=== PATIENT | female | born 1980 | race Caucasian/White ===

== ENCOUNTER → 2018-08-14 16:37 | Outpatient (CLI) | payer OTHER, SELFPAY ==
[2018-08-14 10:57] VITALS: BMI 34.7
[2018-08-17 17:15] LABS: HPV APTIMA, High Risk Negative (Negative)
== END ==
PROVIDERS: Family Provider Family Medicine; PCP Family Medicine; Referring Provider Obstetrics & Gynecology; Visit Provider Obstetrics & Gynecology
DX: Z12.4 Encounter for screening for malignant neoplasm of cervix (principal)
CPT/HCPCS: 87624; 88175; G0145

== ENCOUNTER → 2018-08-19 09:12 | Outpatient (CLI) | payer OTHER, SELFPAY ==
[2018-08-14 10:57] VITALS: BMI 34.7
--- NOTE | 2018-08-19 09:15 | BI_ITS ---
MAMMOGRAPHY - BILATERAL DIAGNOSTIC REASON FOR EXAM: Female, 38 years old. Palpable abnormality in the left breast. PERTINENT HISTORY: Non-contributory. TECHNIQUE: Digital bilateral breast ramses (3D mammographic acquisition) in the CC and MLO projections. 2-D mediolateral oblique (MLO) and craniocaudad (CC) views of both breasts were obtained. CAD: Full Field Digital Mammography with Computer Added Detection was performed. COMPARISON: None. Baseline examination. FINDINGS: Breast Composition: The breasts are extremely dense, which lowers the sensitivity of mammography. There are no dominant masses or suspicious calcifications. No other significant abnormalities are identified. BI/DIAG MAMM W/CAD, BILAT IMPRESSION: Negative diagnostic mammogram. With the patient's history of a pathologic abnormality in the left breast, correlation with ultrasound is recommended. ASSESSMENT CATEGORY: BIRADS Category 0: Incomplete. Need additional imaging evaluation. A letter regarding these results will be sent to the patient by the facility within 30 days. Approximately 10% of breast cancers are not detected by mammography. A normal mammogram should not delay biopsy of a clinically suspicious abnormality. Electronically Signed: Bubba Rios, at 14:36 EDT , Service support ,
--- NOTE | 2018-08-19 09:15 | US_ITS ---
STUDY: ULTRASOUND BREAST - LEFT REASON FOR EXAM: Female, 38 years old. Palpable lump left breast. TECHNIQUE: Axial and longitudinal images of the LEFT breast were performed with a high resolution ultrasound transducer. COMPARISON: Comparison is made with prior mammogram done earlier today. FINDINGS: LEFT Breast: The upper outer quadrant of the left breast was examined by ultrasound. There is dense fibroglandular tissue. No solid or cystic mass lesion is seen. US/Breast Limited Unilateral IMPRESSION: Unremarkable ultrasound of the upper outer quadrant of the left breast. ASSESSMENT CATEGORY: BIRADS Category 1: Negative. A letter regarding these results will be sent to the patient by the facility within 30 days. Electronically Signed: Bubba Rios, at 12:22 EDT , Service support ,
== END ==
PROVIDERS: Family Provider Family Medicine; PCP Family Medicine; Referring Provider Obstetrics & Gynecology; Visit Provider Obstetrics & Gynecology
DX: N63.20 Unspecified lump in the left breast, unspecified quadrant (principal)
CPT/HCPCS: 76642; 77066

== ENCOUNTER → 2019-09-12 12:38 | Outpatient (CLI) | payer OTHER, SELFPAY ==
[2018-09-13 08:09] VITALS: BMI 34.7
--- NOTE | 2019-09-12 12:39 | BI_ITS ---
MAMMOGRAPHY - BILATERAL SCREENING REASON FOR EXAM: Female, 39 years old. Routine annual screening examination. PERTINENT HISTORY: Non-contributory. TECHNIQUE: Digital bilateral breast sarahi (3D mammographic acquisition) in the CC and MLO projections. 2-D mediolateral oblique (MLO) and craniocaudad (CC) views of both breasts were obtained. CAD: Full Field Digital Mammography with Computer Added Detection was performed. COMPARISON: Comparison is made with prior study dated August 19, 2018. FINDINGS: Breast Composition: The breasts are extremely dense, which lowers the sensitivity of mammography. There are no dominant masses or suspicious calcifications. No other significant abnormalities are identified. There has been no significant change since the prior study. BI/SCREEN MAMM (CAD) W/SARAHI BILAT IMPRESSION: Stable bilateral screening mammogram. Yearly follow-up mammogram recommended. (A) ASSESSMENT CATEGORY: BIRADS Category 1: Negative. A letter regarding these results will be sent to the patient by the facility within 30 days. Approximately 10% of breast cancers are not detected by mammography. A normal mammogram should not delay biopsy of a clinically suspicious abnormality. [id number] Electronically Signed: Bubba Rios, at 13:20 EDT , Service support ,
== END ==
PROVIDERS: PCP Family Medicine; Referring Provider Obstetrics & Gynecology; Visit Provider Obstetrics & Gynecology
DX: Z12.31 Encounter for screening mammogram for malignant neoplasm of breast (principal)
CPT/HCPCS: 77063; 77067

== ENCOUNTER → 2019-10-17 10:47 | Outpatient (CLI) | payer OTHER, SELFPAY ==
[2019-10-04 08:16] VITALS: BMI 38.3
--- NOTE | 2019-10-17 10:49 | US_ITS ---
STUDY: ULTRASOUND BREAST - LEFT REASON FOR EXAM: Female, 39 years old. Palpable lump in the left breast. TECHNIQUE: Axial and longitudinal images of the LEFT breast were performed with a high resolution ultrasound transducer. # OF IMAGES: 67 COMPARISON: None. FINDINGS: LEFT Breast: There is no abnormality in the soft tissues of the breast to correlate with the mammographic abnormality. There is no abnormal soft tissue tissue mass. There is no cyst formation. US/Breast Complete Unilateral IMPRESSION: There is no abnormality in the soft tissues of the breast to correlate with the mammographic abnormality. There is no abnormal soft tissue tissue mass. There is no cyst formation. ASSESSMENT CATEGORY: BIRADS Category 2: Benign. A letter regarding these results will be sent to the patient by the facility within 30 days. Electronically Signed: Darcie Yañez, at 13:21 EDT Tel , Service support ,
== END ==
PROVIDERS: PCP Family Medicine; Referring Provider Obstetrics & Gynecology; Visit Provider Obstetrics & Gynecology
DX: N63.20 Unspecified lump in the left breast, unspecified quadrant (principal)
CPT/HCPCS: 76641

== ENCOUNTER → 2020-10-22 12:58 | Outpatient (CLI) | payer OTHER, SELFPAY ==
[2020-10-07 15:06] VITALS: BMI 38.3
--- NOTE | 2020-10-22 12:59 | BI_ITS ---
MAMMOGRAPHY - BILATERAL SCREENING REASON FOR EXAM: Female, 40 years old. Routine annual screening examination. PERTINENT HISTORY: Non-contributory. TECHNIQUE: Digital bilateral breast sarahi (3D mammographic acquisition) in the CC and MLO projections. 2-D mediolateral oblique (MLO) and craniocaudad (CC) views of both breasts were obtained. CAD: Full Field Digital Mammography with Computer Added Detection was performed. COMPARISON: Comparison is made with prior examination of 09/12/2019 and 08/19/2018. FINDINGS: Breast Composition: The breasts are extremely dense, which lowers the sensitivity of mammography. There are no dominant masses or suspicious calcifications. No other significant abnormalities are identified. There has been no significant change since the prior study. BI/SCRN MAMM (CAD)W/SARAHI BILAT IMPRESSION: Stable bilateral screening mammogram. Yearly follow-up mammogram recommended. (A) ASSESSMENT CATEGORY: BIRADS Category 1: Negative. A letter regarding these results will be sent to the patient by the facility within 30 days. Approximately 10% of breast cancers are not detected by mammography. A normal mammogram should not delay biopsy of a clinically suspicious abnormality. [id number] Electronically Signed: Bubba Rios MD at 14:10 EDT , Service support ,
== END ==
PROVIDERS: PCP Family Medicine; Referring Provider Obstetrics & Gynecology; Visit Provider Obstetrics & Gynecology
DX: Z12.31 Encounter for screening mammogram for malignant neoplasm of breast (principal)
CPT/HCPCS: 77063; 77067

== ENCOUNTER → 2022-02-07 | Outpatient (CLI) | payer OTHER, SELFPAY ==
--- NOTE | 2022-02-07 13:41 | BI_ITS ---
MAMMOGRAPHY - BILATERAL SCREENING REASON FOR EXAM: Female, 41 years old. Routine annual screening examination. PERTINENT HISTORY: Non-contributory. TECHNIQUE: Digital bilateral breast sarahi (3D mammographic acquisition) in the CC and MLO projections. 2-D mediolateral oblique (MLO) and craniocaudad (CC) views of both breasts were obtained. CAD: Full Field Digital Mammography with Computer Added Detection was performed. COMPARISON: Comparison is made with prior study dated 10/22/2020 and 09/12/2019. FINDINGS: Breast Composition: The breasts are extremely dense, which lowers the sensitivity of mammography. There are no dominant masses or suspicious calcifications. No other significant abnormalities are identified. There has been no significant change since the prior study. BI/SCRN MAMM (CAD)W/SARAHI BILAT IMPRESSION: Stable bilateral screening mammogram. Yearly follow-up mammogram recommended. (A) ASSESSMENT CATEGORY: BIRADS Category 1: Negative. A letter regarding these results will be sent to the patient by the facility within 30 days. Approximately 10% of breast cancers are not detected by mammography. A normal mammogram should not delay biopsy of a clinically suspicious abnormality. [id number] Electronically Signed: Bubba Rios MD at 14:27 EDT ,
== END | disposition home or self-care (01) ==
LOC: OPBI 13:13
PROVIDERS: PCP Family Medicine; Referring Provider Obstetrics & Gynecology; Visit Provider Obstetrics & Gynecology
DX: Z12.31 Encounter for screening mammogram for malignant neoplasm of breast (principal)
CPT/HCPCS: 77063; 77067

== ENCOUNTER → 2022-03-30 | Outpatient (CLI) | payer OTHER, SELFPAY ==
[2022-03-30 13:25] LABS: Amphetamine Urine VISTA NEGATIVE (<1000 ng/mL); Barbiturate Urine VISTA NEGATIVE (< 200 ng/mL); Benzodiazepine Urine VISTA NEGATIVE (< 200 ng/mL); Cocaine Urine VISTA NEGATIVE (< 300 ng/mL); Ecstacy Urine VISTA NEGATIVE (< 500 ng/mL); Methadone Urine VISTA NEGATIVE (< 300 ng/mL); PCP Urine VISTA NEGATIVE (< 25 ng/mL); THC Urine VISTA NEGATIVE (< 50 ng/mL); Vista UDS pH Range 7
[2022-04-01 12:08] LABS: Chlamydia By Nucleic Acid AMP Negative (Negative)
[2022-04-01 15:12] LABS: Gonococcus By Nucleic Acid AMP Negative (Negative)
== END | disposition home or self-care (01) ==
LOC: LABSPEC 11:58
PROVIDERS: PCP Family Medicine; Visit Provider Obstetrics & Gynecology
DX: O09.519 Supervision of elderly primigravida, unspecified trimester (principal); Z3A.00 Weeks of gestation of pregnancy not specified
CPT/HCPCS: 80307; 87086; 87088; 87491; 87591

== ENCOUNTER → 2022-04-04 | Outpatient (CLI) | payer OTHER, SELFPAY ==
[2022-04-04 16:01] LABS: NATERA MAILED SPECIMEN
[2022-04-04 16:09] LABS: Absolute Lymphocyte Count 1.36 X10^3/uL (0.83-4.51); Basophil# 0.01 X10^3/uL; Basophil% 0.2 % (0-1); Eosinophil# 0.06 X10^3/uL; Hematocrit 39.6 % (37-47); Hemoglobin 13.4 g/dL (12.0-15.0); Lymphocyte # 1.36 X10^3/ul (0.83-4.51); Lymphocyte % 23.1 % (19-41); Mean Corp Hgb Conc 33.8 g/dL (32-36); Mean Corpuscular Hgb 31.8 pg (27.0-32.0); Mean Corpuscular Volume 94.1 fL (81-99); Mean Platelet Vol. 14.1 fl (6.2-12.0); Monocyte# 0.41 X10^3/uL; NRBC Flagged by Analyzer 0 % (0-5); Neutrophil # 4.03 X10^3/uL (2.7-7.7); Neutrophil % 68.5 % (47-70); Platelet Count 123 K/mm3 (150-450); RBC Distribution Width CV 12.9 % (11.6-14.6); RBC Distribution Width SD 44.6 fl (35.1-43.9); Red Blood Count 4.21 M/mm3 (4.2-5.4); White Blood Count 5.9 K/mm3 (4.4-11.0)
[2022-04-04 17:16] LABS: Glucose Challenge Gest 1H 50g 94 mg/dL (70-140)
[2022-04-05 12:14] LABS: HIV - WCH Non-Reactive (Nonreactive); Hepatitis B Surface Antigen Non-Reactive (Nonreactive); Hepatitis C Antibody Non-Reactive (Nonreactive); Rubella IgG Reactive (Nonreactive); Syphilis Antibodies Non-reactive
== END | disposition home or self-care (01) ==
LOC: LAB 14:37
PROVIDERS: PCP Family Medicine; Referring Provider Obstetrics & Gynecology; Visit Provider Obstetrics & Gynecology
DX: O09.519 Supervision of elderly primigravida, unspecified trimester (principal); O99.210 Obesity complicating pregnancy, unspecified trimester; E66.9 Obesity, unspecified; Z3A.00 Weeks of gestation of pregnancy not specified
CPT/HCPCS: 36415; 82950; 85025; 86703; 86762; 86780; 86803; 86850; 86900; 86901; 87340

== ENCOUNTER → 2022-05-05 | Outpatient (CLI) | payer OTHER, SELFPAY ==
[2022-05-05 10:04] LABS: Absolute Lymphocyte Count 1.45 X10^3/uL (0.83-4.51); Absolute Neutrophil Count 6.1 X10^3/uL (2.0-7.7); Basophil# 0.01 X10^3/uL; Basophil% 0.1 % (0-1); Eosinophil# 0.06 X10^3/uL; Eosinophils% 0.7 % (0-5); Hematocrit 40.2 % (37-47); Hemoglobin 13.1 g/dL (12.0-15.0); Lymphocyte # 1.45 X10^3/ul (0.83-4.51); Lymphocyte % 17.8 % (19-41); Mean Corp Hgb Conc 32.6 g/dL (32-36); Mean Corpuscular Hgb 30.9 pg (27.0-32.0); Mean Corpuscular Volume 94.8 fL (81-99); Mean Platelet Vol. 12.3 fl (6.2-12.0); Monocyte# 0.45 X10^3/uL; Monocyte% 5.5 % (0-10); NRBC Flagged by Analyzer 0.2 % (0-5); Neutrophil # 6.14 X10^3/uL (2.7-7.7); Neutrophil % 75.3 % (47-70); Platelet Count 141 K/mm3 (150-450); RBC Distribution Width CV 12.5 % (11.6-14.6); Red Blood Count 4.24 M/mm3 (4.2-5.4); White Blood Count 8.2 K/mm3 (4.4-11.0)
== END | disposition home or self-care (01) ==
LOC: PAVLAB 09:44
PROVIDERS: PCP Family Medicine; Referring Provider Obstetrics & Gynecology; Visit Provider Obstetrics & Gynecology
DX: O99.119 Other diseases of the blood and blood-forming organs and certain disorders involving the immune mechanism complicating pregnancy, unspecified trimester (principal); D69.6 Thrombocytopenia, unspecified
CPT/HCPCS: 36415; 85025

== ENCOUNTER → 2022-06-06 | Outpatient (CLI) | payer OTHER, SELFPAY ==
[2022-06-06 08:45] LABS: Absolute Lymphocyte Count 1.34 X10^3/uL (0.83-4.51); Absolute Neutrophil Count 5.7 X10^3/uL (2.0-7.7); Basophil# 0.01 X10^3/uL; Basophil% 0.1 % (0-1); Eosinophil# 0.07 X10^3/uL; Eosinophils% 0.9 % (0-5); Hematocrit 38.3 % (37-47); Hemoglobin 12.5 g/dL (12.0-15.0); Lymphocyte # 1.34 X10^3/ul (0.83-4.51); Lymphocyte % 17.6 % (19-41); Mean Corp Hgb Conc 32.6 g/dL (32-36); Mean Corpuscular Hgb 30.9 pg (27.0-32.0); Mean Corpuscular Volume 94.8 fL (81-99); Mean Platelet Vol. 13.8 fl (6.2-12.0); Monocyte% 5.3 % (0-10); NRBC Flagged by Analyzer 0 % (0-5); Neutrophil # 5.74 X10^3/uL (2.7-7.7); Neutrophil % 75.4 % (47-70); Platelet Count 124 K/mm3 (150-450); RBC Distribution Width CV 13.2 % (11.6-14.6); RBC Distribution Width SD 45.8 fl (35.1-43.9); Red Blood Count 4.04 M/mm3 (4.2-5.4); White Blood Count 7.6 K/mm3 (4.4-11.0)
== END | disposition home or self-care (01) ==
PROVIDERS: PCP Family Medicine; Referring Provider Obstetrics & Gynecology; Visit Provider Obstetrics & Gynecology
DX: O99.119 Other diseases of the blood and blood-forming organs and certain disorders involving the immune mechanism complicating pregnancy, unspecified trimester (principal); D69.6 Thrombocytopenia, unspecified
CPT/HCPCS: 36415; 85025

== ENCOUNTER → 2022-08-01 | Outpatient (CLI) | payer OTHER, SELFPAY ==
[2022-08-01 11:10] LABS: Absolute Lymphocyte Count 1.02 X10^3/uL (0.83-4.51); Absolute Neutrophil Count 6.2 X10^3/uL (2.0-7.7); Basophil# 0.01 X10^3/uL; Basophil% 0.1 % (0-1); Eosinophil# 0.03 X10^3/uL; Eosinophils% 0.4 % (0-5); Hematocrit 37.6 % (37-47); Hemoglobin 12.2 g/dL (12.0-15.0); Lymphocyte # 1.02 X10^3/ul (0.83-4.51); Lymphocyte % 13.3 % (19-41); Mean Corp Hgb Conc 32.4 g/dL (32-36); Mean Corpuscular Hgb 31.1 pg (27.0-32.0); Mean Corpuscular Volume 95.9 fL (81-99); Monocyte# 0.35 X10^3/uL; Monocyte% 4.6 % (0-10); NRBC Flagged by Analyzer 0 % (0-5); Neutrophil # 6.22 X10^3/uL (2.7-7.7); Neutrophil % 81.1 % (47-70); POSITIVE MORPHOLOGY YES; Platelet Count 120 K/mm3 (150-450); RBC Distribution Width CV 13.3 % (11.6-14.6); RBC Distribution Width SD 46.5 fl (35.1-43.9); Red Blood Count 3.92 M/mm3 (4.2-5.4); White Blood Count 7.7 K/mm3 (4.4-11.0)
[2022-08-01 11:31] LABS: Glucose Challenge Gest 1H 50g 126 mg/dL (70-140)
[2022-08-01 12:04] LABS: HIV - WCH Non-Reactive (Nonreactive); Syphilis Antibodies Non-reactive
[2022-08-01 12:54] LABS: Differential Indicated SCAN CRITERIA MET
[2022-08-01 13:05] LABS: Differential Comment SCANNED
== END | disposition home or self-care (01) ==
LOC: PAVLAB 10:23
PROVIDERS: PCP Family Medicine; Referring Provider Obstetrics & Gynecology; Visit Provider Obstetrics & Gynecology
DX: O09.90 Supervision of high risk pregnancy, unspecified, unspecified trimester (principal)
CPT/HCPCS: 36415; 82950; 85025; 86703; 86780

== ENCOUNTER → 2022-09-01 | Outpatient (CLI) | payer OTHER, SELFPAY ==
[2022-09-01 08:11] LABS: Absolute Lymphocyte Count 1.31 X10^3/uL (0.83-4.51); Absolute Neutrophil Count 5.6 X10^3/uL (2.0-7.7); Basophil# 0.02 X10^3/uL; Basophil% 0.3 % (0-1); Eosinophil# 0.09 X10^3/uL; Eosinophils% 1.2 % (0-5); Hematocrit 39.1 % (37-47); Hemoglobin 12.6 g/dL (12.0-15.0); Lymphocyte # 1.31 X10^3/ul (0.83-4.51); Lymphocyte % 17.7 % (19-41); Mean Corp Hgb Conc 32.2 g/dL (32-36); Mean Corpuscular Hgb 30.9 pg (27.0-32.0); Mean Corpuscular Volume 95.8 fL (81-99); Mean Platelet Vol. 13.2 fl (6.2-12.0); Monocyte# 0.38 X10^3/uL; Monocyte% 5.1 % (0-10); NRBC Flagged by Analyzer 0 % (0-5); Neutrophil # 5.56 X10^3/uL (2.7-7.7); Neutrophil % 74.9 % (47-70); Platelet Count 114 K/mm3 (150-450); RBC Distribution Width CV 13.6 % (11.6-14.6); RBC Distribution Width SD 47.8 fl (35.1-43.9); Red Blood Count 4.08 M/mm3 (4.2-5.4); White Blood Count 7.4 K/mm3 (4.4-11.0)
== END | disposition home or self-care (01) ==
LOC: PAVLAB 07:52
PROVIDERS: PCP Family Medicine; Referring Provider Nurse Practitioner Women's Health; Visit Provider Nurse Practitioner Women's Health
DX: O99.119 Other diseases of the blood and blood-forming organs and certain disorders involving the immune mechanism complicating pregnancy, unspecified trimester (principal); D69.6 Thrombocytopenia, unspecified
CPT/HCPCS: 36415; 85025

== ENCOUNTER 2022-09-21 16:03 | Outpatient (CLI) | payer OTHER, SELFPAY ==
[2022-09-21] VITALS (15 sets, daily range): BP systolic 133–158; BP diastolic 76–90; PULSE 70–83; TEMP 37.1–37.2; O2SAT 97–100; BMI 40.0
[2022-09-21 17:49] LABS: Hematocrit 40.7 % (37-47); Hemoglobin 13.4 g/dL (12.0-15.0); Mean Corp Hgb Conc 32.9 g/dL (32-36); Mean Corpuscular Hgb 30.7 pg (27.0-32.0); Mean Corpuscular Volume 93.3 fL (81-99); Mean Platelet Vol. 14.2 fl (6.2-12.0); POSITIVE COUNT YES; POSITIVE MORPHOLOGY YES; Platelet Count 96 K/mm3 (150-450); RBC Distribution Width CV 13.3 % (11.6-14.6); RBC Distribution Width SD 45.4 fl (35.1-43.9); Red Blood Count 4.36 M/mm3 (4.2-5.4); White Blood Count 8.4 K/mm3 (4.4-11.0)
[2022-09-21 17:57] LABS: Scan Indicated on CBC? Y/N YES- FLAGS NOTED
[2022-09-21 18:16] LABS: AST(SGOT) 11 U/L (15-37); Alanine Aminotransfer ALT/SGPT 13 U/L (13-56); Creatinine, Serum 0.84 mg/dL (0.55-1.02); EST Glomerular Filtration Rate 78 mL/min (>60); Est Glom Filt Rate - Afr Amer 94 mL/min (>60); Estimated Creatinine Clearance 83.11 ml/min; Uric Acid 5.8 mg/dL (2.6-6.0)
[2022-09-21 18:40] LABS: Differential Comment SCANNED
[2022-09-21 18:47] LABS: Protein, Urine (Random) 6.4 mg/dL (<11.9); Protein:Creat Ratio 181 mg/g CRE (0-200)
[2022-09-21] MEDS: Betamethasone/Betamethasone 30 MG/5 ML Vial 12 MG IM (19:06)
--- NOTE | 2022-09-21 19:32 | OB.TRI.HP_ITS ---
HPI - General HPI Narrative MARIVEL HURTADO, is a 42 F who presents with elevated blood pressures from the office. No proteinuria but platelets are decreased from previous. She has a history of gestational thrombocytopenia. Liver enzymes are within normal limits. Patient denies any headaches or blurry vision. She has had increased stress at home. Patient is not on any medication for elevated blood pressures. She denies any vaginal bleeding or loss of fluid Maternal Data Information IVANA Calculator Estimated Delivery Date Method Current WG Current Estimate 10/27/22 LMP (Certain) 35w 3d Other Estimates 10/24/22 Ultrasound #1 35w 6d PFSH PFSH Medical History Anxiety Fibrocystic changes of left breast Left breast lump Low-lying placenta in second trimester Migraine Primary female infertility Home Medications prenat.vits,timoteo,phl-khka-ndiri 1 tab PO DAILY 05/10/22 [History Last Taken 09/20/22 22:00] compress.stocking,knee,reg,lrg #2 ea 06/06/22 [Rx Last Taken Unknown] breast pump #1 ea 08/28/22 [Rx Last Taken Unknown] ferrous sulfate 142 mg (45 mg iron) tablet,extended release (Slow Fe) 142 mg PO DAILY 09/21/22 [History Last Taken 09/21/22 10:00] nystatin 100,000 unit/gram topical powder (Nystop) 1 applic topical BID #45 ea 09/22/22 [Rx Last Taken Unknown] Allergy/AdvReac Type Severity Reaction Status Date / Time penicillin G Allergy Mild Other Verified 09/15/22 15:12 Family History Father Cancer Prostate Grandmother CVA (cerebral vascular accident) Mother Brain aneurysm CVA (cerebral vascular accident) Brain tumor Surgical History History of appendectomy History of foot surgery Social History adopted: No household members: spouse housing: house current occupational status: employed 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 pets and animals: No history of recent travel: No sexually active: Yes Smoking Status: Never smoker alcohol intake: never substance use type: does not use well-balanced diet: daily or most days caffeine: Yes Type: tea Number of servings: 2 eating out: rarely or never during the past year weight has: remained stable what type of physical activity do you participate in: none bubba/taoist: None seatbelt use: always do you feel safe at home: Yes additional social history: Bhupinder- Street Contractor 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 History 1 Elective abortions Hx Para 0 Spontaneous abortions Hx # Term Pregnancies Ectopic pregnancies Hx # Pregnancies Multiple births # of living children Visit Details Expected Delivery Route/Plan Labor Preferences- CB/BF classes: [] labor support person: [] labor intervention preferences: [] pain management options preferred: [] cut cord/dad catch: [] : [] PP control planned: [] discussed possible routes of delivery and associated risks: [] special requests: [] Plans Covid status: discussed Flu vaccine: discussed Tdap vaccine: given Rhogam: na LARC form signed: [] movement and labor precautions reviewed. Problem list reviewed and updated with the most current plan of care details and appropriate orders placed. Relevant counseling for the gestational age provided. Continue routine care and follow up unless otherwise noted in visit notes/problem list details OB Flowsheet Initial Weight: Not Recorded Date -?-?-?-?-?-?-?-?-?-?-?-?- EGA Weight BP Urine Prot -?-?-?-?-?-?-?-?-?-?-?-?- Glucose FHR FuHt Pres Dilation -?-?-?-?-?-?-?-?-?-?-?-?- Effaced St Visit Note 03/30/22 -?-?-?-?-?-?-?-?-?-?-?-?- 9w 6d 226 lb 4 oz 124/83 Nega tive -?-?-?-?-?-?-?-?-?-?-?-?- Negative 160 -?-?-?-?-?-?-?-?-?-?-?-?- SM- CRL 3 cm con s with LMP 04/14/22 -?-?-?-?-?-?-?-?-?-?-?-?- 12w 0d 230 lb Negative -?-?-?-?-?-?-?-?-?-?-?-?- Negative 160 -?-?-?-?-?-?-?-?-?-?-?-?- SM- no vb lof cr amping reviewed results. 05/12/22 -?-?-?-?-?-?-?-?-?-?-?-?- 16w 0d 239 lb 4 oz 140/83 131/78 Negative -?-?-?-?-?-?-?-?-?-?-?-?- Negative 163 -?-?-?-?-?-?-?-?-?-?-?-?- JV- no lof, vagi nal, bleeding, or cramping. has yeast and monistat did not help. will try diflucan. saw linen room custodian and plan to repeat the plts next visit 06/06/22 -?-?-?-?-?-?-?-?-?-?-?-?- 19w 4d 238 lb 4 oz 138/82 Nega tive -?-?-?-?-?-?-?-?-?-?-?-?- Negative 141 -?-?-?-?-?-?-?-?-?-?-?-?- JV- restless leg s bothering her. we discussed remedies. has anatomy scan scheduled. pt will start iron. normal cbc today however. 07/03/22 -?-?-?-?-?-?-?-?-?-?-?-?- 23w 3d 244 lb 8 oz 128/80 Nega tive -?-?-?-?-?-?-?-?-?-?-?-?- Negative 150 -?-?-?-?-?-?-?-?-?-?-?-?- SM- no vb lof cr amping 08/01/22 -?-?-?-?-?-?-?-?-?-?-?-?- 27w 4d 246 lb 136/79 Negative -?-?-?-?-?-?-?-?-?-?-?-?- Negative 155 33 -?-?-?-?-?-?-?-?-?-?-?-?- JV- has growth s can next visit and every 4 weeks. gct today JV- has growth scan next vis it and every 4 weeks. gct today and passed 1 hr. 08/14/22 -?-?-?-?-?-?-?-?-?-?-?-?- 29w 3d 247 lb 8 oz 123/77 -?-?-?-?-?-?-?-?-?-?-?-?- 150 33 -?-?-?-?-?-?-?-?-?-?-?-?- SM- no vb lof go od fm n oregular ctx tdap and discussed extra testing 09/01/22 -?-?-?-?-?-?-?-?-?-?-?-?- 32w 0d 252 lb 136/82 136/82 Negative -?-?-?-?-?-?-?-?-?-?-?-?- Negative 130 34 -?-?-?-?-?-?-?-?-?-?-?-?- KW-no lof/ctx/vb . +FM Rash on inner left thigh. 09/07/22 -?-?-?-?-?-?-?-?-?-?-?-?- 32w 6d 253 lb 2 oz 134/83 -?-?-?-?-?-?-?-?-?-?-?-?- -?-?-?-?-?-?-?-?-?-?-?-?- MH-NST only reac tive 09/15/22 -?-?-?-?-?-?-?-?-?-?-?-?- 34w 0d 256 lb 6 oz 129/81 Nega tive -?-?-?-?-?-?-?-?-?-?-?-?- Negative 140 -?-?-?-?-?-?-?-?-?-?-?-?- SM- no vb lof go od fm no regular ctx 09/21/22 -?-?-?-?-?-?-?-?-?-?-?-?- 35w 0d 255 lb 11.779 oz 139 /82 143/84 155/82 156/82 158/84 152/90 155/85 155/83 155/83 133/76 137/84 -?-?-?-?-?-?-?-?-?-?-?-?- -?-?-?-?-?-?-?-?-?-?-?-?- Physical Exam Const alert, oriented x3 and no apparent distress HEENT Head and Scalp: normocephalic and atraumatic Eyes EOMs intact bilaterally Neck full ROM and no lymphadenopathy Chest inspection of chest normal Resp normal respiratory effort GI GI Narrative: gravid, abdomen nontender, AGA Neuro no focal motor deficits Motor Exam: clonus absent NST FHR Rate Baby A Baseline: 140 Variability:: Moderate Accelerations:: 15 x 15 Decelerations:: None NST Reactive:: Yes FHR Category:: Category I Uterine Activity:: no regular Assessment & Plan (1) Depression: COMMENT: counseling and celexa (2) : QUALIFIERS: Weeks of gestation: 34 weeks Qualified Code(s): Z3A.34 - 34 weeks gestation of COMMENT: NIPT low risk, discussed carrier testing (3) Primigravida of advanced maternal age: COMMENT: genetic counseling provided,NIPT low resk, plan third trimester testing and 39 week delivery, growth US Q4wks after 28 wks and weekly NST's @ 32 weeks. Growth US normal (4) Obesity affecting : COMMENT: 1 TM GCT nl, encourage healthy weight gain (5) Supervision of high-risk : COMMENT: PRR , IVANA 10/27/22, boy, Bhupinder (6) Thrombocytopenia affecting : COMMENT: likely GTP, follow cbc monthly. Hematology consult done. (7) AMA (advanced maternal age) multigravida 35+: (8) Gestational hypertension affecting first : COMMENT: STO 09/21-. BMZ given. no proteinuria, admit overnight for serial labs to confirm stability of platelets and liver enzymes. Monitor blood pressures overnight Charges/Coding Multi Select Codes Visit Charges Observation E&M Codin Initial observation care L3 Urinary/Genital Urinary/Genital CPT Codes: 99040-64 non-stress test Interp
[2022-09-22 03:30] VITALS: BP 137/84; PULSE 75; TEMP 36.9
[2022-09-22 05:06] LABS: Absolute Neutrophil Count 7.8 X10^3/uL (2.0-7.7); Basophil# 0.01 X10^3/uL; Basophil% 0.1 % (0-1); Hematocrit 38.3 % (37-47); Hemoglobin 12.4 g/dL (12.0-15.0); Mean Corp Hgb Conc 32.4 g/dL (32-36); Mean Corpuscular Hgb 30.6 pg (27.0-32.0); Mean Corpuscular Volume 94.6 fL (81-99); Monocyte# 0.15 X10^3/uL; Monocyte% 1.7 % (0-10); NRBC Flagged by Analyzer 0 % (0-5); Neutrophil # 7.81 X10^3/uL (2.7-7.7); Neutrophil % 89.3 % (47-70); Platelet Count 110 K/mm3 (150-450); RBC Distribution Width CV 13.3 % (11.6-14.6); RBC Distribution Width SD 45.6 fl (35.1-43.9); Red Blood Count 4.05 M/mm3 (4.2-5.4); White Blood Count 8.8 K/mm3 (4.4-11.0)
[2022-09-22 05:55] LABS: ALB/GLOB Ratio 0.7 RATIO (0.9-2.4); AST(SGOT) 12 U/L (15-37); Alanine Aminotransfer ALT/SGPT 17 U/L (13-56); Albumin, Serum 2.6 g/dL (3.2-5.0); Alkaline Phosphatase 69 U/L (45-117); Anion Gap 8 (5-15); BUN 10 mg/dL (7-18); BUN/Creat Ratio 12.1 RATIO (10-20); Calcium,Total 9.7 mg/dL (8.5-10.1); Chloride 107 mmol/L (98-107); Creatinine, Serum 0.83 mg/dL (0.55-1.02); EST Glomerular Filtration Rate 79 mL/min (>60); Est Glom Filt Rate - Afr Amer 96 mL/min (>60); Estimated Creatinine Clearance 84.11 ml/min; Globulin 3.8 g/dL (2.2-4.2); Glucose 133 mg/dL (74-106); Potassium 3.7 mmol/L (3.5-5.1); Protein, Total 6.4 g/dL (6.4-8.2); Sodium Level 135 mmol/L (136-145)
[2022-09-22 06:07] VITALS: PULSE 84; O2SAT 94
[2022-09-22 06:13] VITALS: PULSE 78; O2SAT 94
--- NOTE | 2022-09-22 07:00 | US_ITS ---
STUDY: OBSTETRICAL ULTRASOUND - BIOPHYSICAL PROFILE REASON FOR EXAM: Female, 42 years old hypertension, thrombocytopenia LMP: January 20, 2022. PRIOR ULTRASOUND: None. TECHNIQUE: Transabdominal TECHNICAL QUALITY: Adequate. FINDINGS: There is a single intrauterine fetus. The fetus is in a cephalic presentation. There is demonstrated cardiac activity with a heart rate of 131 bpm. There is a normal amniotic fluid volume. The largest amniotic fluid pocket measures 7.6 cm x 11 cm. The amniotic fluid index (JENNIFER) is 21 cm. The placenta is posterior in location and is not low lying. There are Grade 1 placental changes. Age by LMP: 35 weeks, 0 days. IVANA by LMP: October 27, 2022. BIOPHYSICAL PROFILE: Breathing Movements (FBM): 2 Gross Body Movements (GBM): 2 Tone (FT): 2 Amniotic Fluid Volume (AFV): 2 TOTAL SCORE: US/Biophysical Prof W/O Non Stres IMPRESSION: Normal biophysical profile of 01/02. Electronically Signed: Bubba Rios MD at 8:37 EDT ,
--- NOTE | 2022-09-22 07:27 | OB.TRI.HP_ITS ---
HPI - General General Date of Admission: 09/21/22 Date of Service: 09/22/22 HPI Narrative MARIVEL HURTADO, is a 42 F who presents with elevated bp in office, monitored overnight, she initially had elevated blood pressures but after monitoring overnight now they are looking better. She denies any headache blurry vision. She is currently in the ultrasound getting a BPP. Maternal Data Information IVANA Calculator Estimated Delivery Date Method Current WG Current Estimate 10/27/22 LMP (Certain) 35w 3d Other Estimates 10/24/22 Ultrasound #1 35w 6d PFSH PFSH Medical History Anxiety Fibrocystic changes of left breast Left breast lump Low-lying placenta in second trimester Migraine Primary female infertility Home Medications prenat.vits,timoteo,ccn-didn-kjxoz 1 tab PO DAILY 05/10/22 [History Last Taken 09/20/22 22:00] compress.stocking,knee,reg,lrg #2 ea 06/06/22 [Rx Last Taken Unknown] breast pump #1 ea 08/28/22 [Rx Last Taken Unknown] ferrous sulfate 142 mg (45 mg iron) tablet,extended release (Slow Fe) 142 mg PO DAILY 09/21/22 [History Last Taken 09/21/22 10:00] nystatin 100,000 unit/gram topical powder (Nystop) 1 applic topical BID #45 ea 09/22/22 [Rx Last Taken Unknown] Allergy/AdvReac Type Severity Reaction Status Date / Time penicillin G Allergy Mild Other Verified 09/15/22 15:12 Family History Father Cancer Prostate Grandmother CVA (cerebral vascular accident) Mother Brain aneurysm CVA (cerebral vascular accident) Brain tumor Surgical History History of appendectomy History of foot surgery Social History adopted: No household members: spouse housing: house current occupational status: employed 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 pets and animals: No history of recent travel: No sexually active: Yes Smoking Status: Never smoker alcohol intake: never substance use type: does not use well-balanced diet: daily or most days caffeine: Yes Type: tea Number of servings: 2 eating out: rarely or never during the past year weight has: remained stable what type of physical activity do you participate in: none bubba/evangelical: None seatbelt use: always do you feel safe at home: Yes additional social history: Bhupinder- Hotel Housekeeper 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 History 1 Elective abortions Hx Para 0 Spontaneous abortions Hx # Term Pregnancies Ectopic pregnancies Hx # Pregnancies Multiple births # of living children Visit Details Expected Delivery Route/Plan Labor Preferences- CB/BF classes: [] labor support person: [] labor intervention preferences: [] pain management options preferred: [] cut cord/dad catch: [] : [] PP control planned: [] discussed possible routes of delivery and associated risks: [] special requests: [] Plans Covid status: discussed Flu vaccine: discussed Tdap vaccine: given Rhogam: na LARC form signed: [] movement and labor precautions reviewed. Problem list reviewed and updated with the most current plan of care details and appropriate orders placed. Relevant counseling for the gestational age provided. Continue routine care and follow up unless otherwise noted in visit notes/problem list details OB Flowsheet Initial Weight: Not Recorded Date -?-?-?-?-?-?-?-?-?-?-?-?- EGA Weight BP Urine Prot -?-?-?-?-?-?-?-?-?-?-?-?- Glucose FHR FuHt Pres Dilation -?-?-?-?-?-?-?-?-?-?-?-?- Effaced St Visit Note 03/30/22 -?-?-?-?-?-?-?-?-?-?-?-?- 9w 6d 226 lb 4 oz 124/83 Nega tive -?-?-?-?-?-?-?-?-?-?-?-?- Negative 160 -?-?-?-?-?-?-?-?-?-?-?-?- SM- CRL 3 cm con s with LMP 04/14/22 -?-?-?-?-?-?-?-?-?-?-?-?- 12w 0d 230 lb Negative -?-?-?-?-?-?-?-?-?-?-?-?- Negative 160 -?-?-?-?-?-?-?-?-?-?-?-?- SM- no vb lof cr amping reviewed results. 05/12/22 -?-?-?-?-?-?-?-?-?-?-?-?- 16w 0d 239 lb 4 oz 140/83 131/78 Negative -?-?-?-?-?-?-?-?-?-?-?-?- Negative 163 -?-?-?-?-?-?-?-?-?-?-?-?- JV- no lof, vagi nal, bleeding, or cramping. has yeast and monistat did not help. will try diflucan. saw fire control system installer and plan to repeat the plts next visit 06/06/22 -?-?-?-?-?-?-?-?-?-?-?-?- 19w 4d 238 lb 4 oz 138/82 Nega tive -?-?-?-?-?-?-?-?-?-?-?-?- Negative 141 -?-?-?-?-?-?-?-?-?-?-?-?- JV- restless leg s bothering her. we discussed remedies. has anatomy scan scheduled. pt will start iron. normal cbc today however. 07/03/22 -?-?-?-?-?-?-?-?-?-?-?-?- 23w 3d 244 lb 8 oz 128/80 Nega tive -?-?-?-?-?-?-?-?-?-?-?-?- Negative 150 -?-?-?-?-?-?-?-?-?-?-?-?- SM- no vb lof cr amping 08/01/22 -?-?-?-?-?-?-?-?-?-?-?-?- 27w 4d 246 lb 136/79 Negative -?-?-?-?-?-?-?-?-?-?-?-?- Negative 155 33 -?-?-?-?-?-?-?-?-?-?-?-?- JV- has growth s can next visit and every 4 weeks. gct today JV- has growth scan next vis it and every 4 weeks. gct today and passed 1 hr. 08/14/22 -?-?-?-?-?-?-?-?-?-?-?-?- 29w 3d 247 lb 8 oz 123/77 -?-?-?-?-?-?-?-?-?-?-?-?- 150 33 -?-?-?-?-?-?-?-?-?-?-?-?- SM- no vb lof go od fm n oregular ctx tdap and discussed extra testing 09/01/22 -?-?-?-?-?-?-?-?-?-?-?-?- 32w 0d 252 lb 136/82 136/82 Negative -?-?-?-?-?-?-?-?-?-?-?-?- Negative 130 34 -?-?-?-?-?-?-?-?-?-?-?-?- KW-no lof/ctx/vb . +FM Rash on inner left thigh. 09/07/22 -?-?-?-?-?-?-?-?-?-?-?-?- 32w 6d 253 lb 2 oz 134/83 -?-?-?-?-?-?-?-?-?-?-?-?- -?-?-?-?-?-?-?-?-?-?-?-?- MH-NST only reac tive 09/15/22 -?-?-?-?-?-?-?-?-?-?-?-?- 34w 0d 256 lb 6 oz 129/81 Nega tive -?-?-?-?-?-?-?-?-?-?-?-?- Negative 140 -?-?-?-?-?-?-?-?-?-?-?-?- SM- no vb lof go od fm no regular ctx 09/21/22 -?-?-?-?-?-?-?-?-?-?-?-?- 35w 0d 255 lb 11.779 oz 139 /82 143/84 155/82 156/82 158/84 152/90 155/85 155/83 155/83 133/76 137/84 -?-?-?-?-?-?-?-?-?-?-?-?- -?-?-?-?-?-?-?-?-?-?-?-?- Physical Exam Const alert, oriented x3 and no apparent distress HEENT Head and Scalp: normocephalic and atraumatic Eyes EOMs intact bilaterally Neck full ROM and no lymphadenopathy Chest inspection of chest normal Resp normal respiratory effort NST FHR Rate Baby A Baseline: 140 Variability:: Moderate Accelerations:: 15 x 15 Decelerations:: None NST Reactive:: Yes FHR Category:: Category I Uterine Activity:: no regular Assessment & Plan (1) Depression: COMMENT: counseling and celexa (2) : QUALIFIERS: Weeks of gestation: 34 weeks Qualified Code(s): Z3A.34 - 34 weeks gestation of COMMENT: NIPT low risk, discussed carrier testing (3) Supervision of high-risk : COMMENT: PRR , IVANA 10/27/22, boy, Bhupinder (4) Primigravida of advanced maternal age: COMMENT: genetic counseling provided,NIPT low resk, plan third trimester testing and 39 week delivery, growth US Q4wks after 28 wks and weekly NST's @ 32 weeks. Growth US normal (5) Obesity affecting : COMMENT: 1 TM GCT nl, encourage healthy weight gain (6) Thrombocytopenia affecting : COMMENT: likely GTP, follow cbc monthly. Hematology consult done. (7) AMA (advanced maternal age) multigravida 35+: (8) Gestational hypertension affecting first : COMMENT: STO 09/21-. BMZ given. no proteinuria, platelets initially dropped and then stabilized. plan 2x weekly nsts as outpatient and deliver at 37 weeks. PLAN: Plan admit STO, stable for dc home today Charges/Coding Multi Select Codes Visit Charges Visit Charges: 05482 Disch Hosp Urinary/Genital Urinary/Genital CPT Codes: 81643-88 non-stress test Interp
== END 2022-09-22 08:20 | disposition home or self-care (01) ==
LOC: WPOUT 16:06 → WP 16:07
PROVIDERS: PCP Family Medicine; Referring Provider Obstetrics & Gynecology; Visit Provider Obstetrics & Gynecology
DX: O13.3 Gestational [pregnancy-induced] hypertension without significant proteinuria, third trimester (principal); D69.6 Thrombocytopenia, unspecified; Z3A.34 34 weeks gestation of pregnancy; O99.213 Obesity complicating pregnancy, third trimester; O09.513 Supervision of elderly primigravida, third trimester; O99.119 Other diseases of the blood and blood-forming organs and certain disorders involving the immune mechanism complicating pregnancy, unspecified trimester; O99.343 Other mental disorders complicating pregnancy, third trimester; F32.A Depression, unspecified; F41.9 Anxiety disorder, unspecified
CPT/HCPCS: 96372; 76819; 36415; 59025; 59050; 80053; 82565; 82570; 84156; 84450; 84460; 84550; 85025; 85027; J0702

== ENCOUNTER 2022-09-22 18:50 | Outpatient (CLI) | payer OTHER, SELFPAY ==
--- NOTE | 2022-09-22 19:26 | NURSING ---
Pt here for second dose of celestone. Pt here last night for high BP- so VS collected tonight: Bp-137/87, HR-86, temperature-97.7 temporal. Pt denies any symptoms. She states she feels good.
[2022-09-22] MEDS: Betamethasone/Betamethasone 30 MG/5 ML Vial 12 MG IM (19:51)
--- NOTE | 2022-09-22 21:31 | OB.TRI.NOTE ---
HPI - General HPI Narrative MARIVEL HURTADO, is a 42 F who presents to L&D for an NST and celestone injection Maternal Data Information IVANA Calculator Estimated Delivery Date Method Current WG Current Estimate 10/27/22 LMP (Certain) 38w 0d Other Estimates 10/24/22 Ultrasound #1 38w 3d PFSH PFS Medical History (Updated 10/13/22 @ 08:[address] Yun Scherer, DO) Anxiety Fibrocystic changes of left breast Gestational HTN Headache Left breast lump Low-lying placenta in second trimester Migraine Primary female infertility Home Medications prenat.vits,timoteo,pmu-nicf-poqwf 1 tab PO DAILY Check with primary doctor 05/10/22 [History Last Taken 10/06/22 06:00 1 tablet] compress.stocking,knee,reg,lrg #2 ea 06/06/22 [Rx Last Taken Unknown] breast pump #1 ea 08/28/22 [Rx Last Taken Unknown] ferrous sulfate 142 mg (45 mg iron) tablet,extended release (Slow Fe) 142 mg PO DAILY Check with primary doctor 09/21/22 [History Last Taken 10/05/22 21:00 142 mg] nystatin 100,000 unit/gram topical powder (Nystop) 1 applic topical BID Check with primary doctor 10/06/22 [History Last Taken 10/03/22 08:00 powder] Allergy/AdvReac Type Severity Reaction Status Date / Time penicillin G Allergy Mild Other Verified 10/02/22 11:25 Family History Father Cancer Prostate Grandmother CVA (cerebral vascular accident) Mother Brain aneurysm CVA (cerebral vascular accident) Brain tumor Surgical History History of appendectomy History of foot surgery Social History adopted: No household members: spouse housing: house current occupational status: employed 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 pets and animals: No history of recent travel: No sexually active: Yes Smoking Status: Never smoker alcohol intake: never substance use type: does not use well-balanced diet: daily or most days caffeine: Yes Type: tea Number of servings: 2 eating out: rarely or never during the past year weight has: remained stable what type of physical activity do you participate in: none bubba/baptist: None seatbelt use: always do you feel safe at home: Yes additional social history: Bhupinder- Paperhanger Supervisor 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 History 1 Elective abortions Hx Para 0 Spontaneous abortions Hx # Term Pregnancies Ectopic pregnancies Hx # Pregnancies Multiple births # of living children Visit Details Expected Delivery Route/Plan Labor Preferences- CB/BF classes: [] labor support person: [] labor intervention preferences: [] pain management options preferred: [] cut cord/dad catch: [] : [] PP control planned: [] discussed possible routes of delivery and associated risks: [] special requests: [] Plans Covid status: discussed Flu vaccine: discussed Tdap vaccine: given Rhogam: na LARC form signed: [] movement and labor precautions reviewed. Problem list reviewed and updated with the most current plan of care details and appropriate orders placed. Relevant counseling for the gestational age provided. Continue routine care and follow up unless otherwise noted in visit notes/problem list details OB Flowsheet Initial Weight: Not Recorded Date <del>?</del> EGA Weight BP Urine Prot <del>?</del> Glucose FHR FuHt Pres Dilation <del>?</del> Effaced St Visit Note 03/30/22 <del>?</del> 9w 6d 226 lb 4 oz 124/83 Negative <del>?</del> Negative 160 <del>?</del> SM- CRL 3 cm cons with LMP 04/14/22 <del>?</del> 12w 0d 230 lb Negative <del>?</del> Negative 160 <del>?</del> SM- no vb lof cramping reviewed results. 05/12/22 <del>?</del> 16w 0d 239 lb 4 oz 140/83 131/78 Negative <del>?</del> Negative 163 <del>?</del> JV- no lof, vaginal, bleeding, or cramping. has yeast and monistat did not help. will try diflucan. saw promos executive producer and plan to repeat the plts next visit 06/06/22 <del>?</del> 19w 4d 238 lb 4 oz 138/82 Negative <del>?</del> Negative 141 <del>?</del> JV- restless legs bothering her. we discussed remedies. has anatomy scan scheduled. pt will start iron. normal cbc today however. 07/03/22 <del>?</del> 23w 3d 244 lb 8 oz 128/80 Negative <del>?</del> Negative 150 <del>?</del> SM- no vb lof cramping 08/01/22 <del>?</del> 27w 4d 246 lb 136/79 Negative <del>?</del> Negative 155 33 <del>?</del> JV- has growth scan next visit and every 4 weeks. gct today JV- has growth scan next visit and every 4 weeks. gct today and passed 1 hr. 08/14/22 <del>?</del> 29w 3d 247 lb 8 oz 123/77 <del>?</del> 150 33 <del>?</del> SM- no vb lof good fm n oregular ctx tdap and discussed extra testing 09/01/22 <del>?</del> 32w 0d 252 lb 136/82 136/82 Negative <del>?</del> Negative 130 34 <del>?</del> KW-no lof/ctx/vb. +FM Rash on inner left thigh. 09/07/22 <del>?</del> 32w 6d 253 lb 2 oz 134/83 <del>?</del> <del>?</del> MH-NST only reactive 09/15/22 <del>?</del> 34w 0d 256 lb 6 oz 129/81 Negative <del>?</del> Negative 140 <del>?</del> SM- no vb lof good fm no regular ctx 09/21/22 <del>?</del> 34w 6d 257 lb 4 oz 141/85 Negative <del>?</del> Negative 140 <del>?</del> SM- to l and d for further evaluation 09/29/22 <del>?</del> 36w 0d 251 lb 4 oz 138/87 Trace <del>?</del> Negative 140 <del>?</del> SM- continuing to monitor bps, normal at home, no fajardo bv 10/02/22 <del>?</del> 36w 3d 255 lb 2 oz 132/89 Negative <del>?</del> Negative 140 <del>?</del> SM- no vb lof good fm n oregular ctx BS reviewed SM- no vb lof good fm n oregular ctx BPs reviewed ROS Constitutional Constitutional: Reports systems reviewed and no addt'l complaints, except as documented Gastrointestinal Gastrointestinal: Denies bloating, constipation, cramping, diarrhea, nausea or vomiting Genitourinary Genitourinary: Reports other Details: Denies vaginal odor, vaginal bleeding, or vaginal discharge ; Denies difficulty urinating or flank pain Physical Exam HEENT normocephalic Resp normal respiratory effort and normal air movement no CVA tenderness Extremity normal to inspection General Extremity: edema bilateral (trace ) NST FHR Rate Baby A Baseline: 140 Variability:: Moderate Accelerations:: 15 x 15 Decelerations:: None NST Reactive:: Yes FHR Category:: Category I Assessment & Plan (1) Depression: COMMENT: counseling and celexa in past (2) Gestational hypertension affecting first : COMMENT: STO . BMZ given. no proteinuria, platelets initially dropped and then stabilized. plan 2x weekly nsts as outpatient and deliver at 37 weeks. PLAN: Plan NST reactive celestone #2 given Charges/Coding Multi Select Codes Urinary/Genital Urinary/Genital CPT Codes: 89587-37 non-stress test Interp
--- NOTE | 2022-09-25 21:31 | OB.TRI.HP_ITS ---
HPI - General HPI Narrative MARIVLE HURTADO, is a 42 F who presents to L&D for an NST and celestone injection Maternal Data Information IVANA Calculator Estimated Delivery Date Method Current WG Current Estimate 10/27/22 LMP (Certain) 38w 0d Other Estimates 10/24/22 Ultrasound #1 38w 3d PFSH PFS Medical History (Updated 10/13/22 @ 08:[address] Yun Scherer, DO) Anxiety Fibrocystic changes of left breast Gestational HTN Headache Left breast lump Low-lying placenta in second trimester Migraine Primary female infertility Home Medications prenat.vits,timoteo,fce-vqns-qbxjq 1 tab PO DAILY Check with primary doctor 05/10/22 [History Last Taken 10/06/22 06:00 1 tablet] compress.stocking,knee,reg,lrg #2 ea 06/06/22 [Rx Last Taken Unknown] breast pump #1 ea 08/28/22 [Rx Last Taken Unknown] ferrous sulfate 142 mg (45 mg iron) tablet,extended release (Slow Fe) 142 mg PO DAILY Check with primary doctor 09/21/22 [History Last Taken 10/05/22 21:00 142 mg] nystatin 100,000 unit/gram topical powder (Nystop) 1 applic topical BID Check with primary doctor 10/06/22 [History Last Taken 10/03/22 08:00 powder] Allergy/AdvReac Type Severity Reaction Status Date / Time penicillin G Allergy Mild Other Verified 10/02/22 11:25 Family History Father Cancer Prostate Grandmother CVA (cerebral vascular accident) Mother Brain aneurysm CVA (cerebral vascular accident) Brain tumor Surgical History History of appendectomy History of foot surgery Social History adopted: No household members: spouse housing: house current occupational status: employed 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 pets and animals: No history of recent travel: No sexually active: Yes Smoking Status: Never smoker alcohol intake: never substance use type: does not use well-balanced diet: daily or most days caffeine: Yes Type: tea Number of servings: 2 eating out: rarely or never during the past year weight has: remained stable what type of physical activity do you participate in: none bubba/orthodoxy: None seatbelt use: always do you feel safe at home: Yes additional social history: Bhupinder- Sheet Metal Former 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 History 1 Elective abortions Hx Para 0 Spontaneous abortions Hx # Term Pregnancies Ectopic pregnancies Hx # Pregnancies Multiple births # of living children Visit Details Expected Delivery Route/Plan Labor Preferences- CB/BF classes: [] labor support person: [] labor intervention preferences: [] pain management options preferred: [] cut cord/dad catch: [] : [] PP control planned: [] discussed possible routes of delivery and associated risks: [] special requests: [] Plans Covid status: discussed Flu vaccine: discussed Tdap vaccine: given Rhogam: na LARC form signed: [] movement and labor precautions reviewed. Problem list reviewed and updated with the most current plan of care details and appropriate orders placed. Relevant counseling for the gestational age provided. Continue routine care and follow up unless otherwise noted in visit notes/problem list details OB Flowsheet Initial Weight: Not Recorded Date -?-?-?-?-?-?-?-?-?-?-?-?- EGA Weight BP Urine Prot -?-?-?-?-?-?-?-?-?-?-?-?- Glucose FHR FuHt Pres Dilation -?-?-?-?-?-?-?-?-?-?-?-?- Effaced St Visit Note 03/30/22 -?-?-?-?-?-?-?-?-?-?-?-?- 9w 6d 226 lb 4 oz 124/83 Nega tive -?-?-?-?-?-?-?-?-?-?-?-?- Negative 160 -?-?-?-?-?-?-?-?-?-?-?-?- SM- CRL 3 cm con s with LMP 04/14/22 -?-?-?-?-?-?-?-?-?-?-?-?- 12w 0d 230 lb Negative -?-?-?-?-?-?-?-?-?-?-?-?- Negative 160 -?-?-?-?-?-?-?-?-?-?-?--?- SM- no vb lof cr amping reviewed results. 05/12/22 -?-?-?-?-?-?-?-?-?-?-?-?- 16w 0d 239 lb 4 oz 140/83 131/78 Negative -?-?-?-?-?-?-?-?-?-?-?-?- Negative 163 -?-?-?-?-?-?-?-?-?-?-?-?- JV- no lof, vagi nal, bleeding, or cramping. has yeast and monistat did not help. will try diflucan. saw swine nutritionist and plan to repeat the plts next visit 06/06/22 -?-?-?-?-?-?-?-?-?-?-?-?- 19w 4d 238 lb 4 oz 138/82 Nega tive -?-?-?-?-?-?-?-?-?-?-?-?- Negative 141 -?-?-?-?-?-?-?-?-?-?-?-?- JV- restless leg s bothering her. we discussed remedies. has anatomy scan scheduled. pt will start iron. normal cbc today however. 07/03/22 -?-?-?-?-?-?-?-?-?-?-?-?- 23w 3d 244 lb 8 oz 128/80 Nega tive -?-?-?-?-?-?-?-?-?-?-?-?- Negative 150 -?-?-?-?-?-?-?-?-?-?-?-?- SM- no vb lof cr amping 08/01/22 -?-?-?-?-?-?-?-?-?-?-?-?- 27w 4d 246 lb 136/79 Negative -?-?-?-?-?-?-?-?-?-?-?-?- Negative 155 33 -?-?-?-?-?-?-?-?-?-?-?-?- JV- has growth s can next visit and every 4 weeks. gct today JV- has growth scan next vis it and every 4 weeks. gct today and passed 1 hr. 08/14/22 -?-?-?-?-?-?-?-?-?-?-?-?- 29w 3d 247 lb 8 oz 123/77 -?-?-?-?-?-?-?-?-?-?-?-?- 150 33 -?-?-?-?-?-?-?-?-?-?-?-?- SM- no vb lof go od fm n oregular ctx tdap and discussed extra testing 09/01/22 -?-?-?-?-?-?-?-?-?-?-?-?- 32w 0d 252 lb 136/82 136/82 Negative -?-?-?-?-?-?-?-?-?-?-?-?- Negative 130 34 -?-?-?-?-?-?-?-?-?-?-?-?- KW-no lof/ctx/vb . +FM Rash on inner left thigh. 09/07/22 -?-?-?-?-?-?-?-?-?-?-?-?- 32w 6d 253 lb 2 oz 134/83 -?-?-?-?-?-?-?--?-?-?-?-?- -?-?-?-?-?-?-?-?-?-?-?-?- MH-NST only reac tive 09/15/22 -?-?-?-?-?-?-?-?-?-?-?-?- 34w 0d 256 lb 6 oz 129/81 Nega tive -?-?-?-?-?-?-?-?-?-?-?-?- Negative 140 -?-?-?-?-?-?-?-?-?-?-?-?- SM- no vb lof go od fm no regular ctx 09/21/22 -?-?-?-?-?-?-?-?-?-?-?-?- 34w 6d 257 lb 4 oz 141/85 Nega tive -?-?-?-?-?-?-?-?-?-?-?-?- Negative 140 -?-?-?-?-?-?-?-?-?-?-?-?- SM- to l and d f or further evaluation 09/29/22 -?-?-?-?-?-?-?-?-?-?-?-?- 36w 0d 251 lb 4 oz 138/87 Trac e -?-?-?-?-?-?-?-?-?-?-?-?- Negative 140 -?-?-?-?-?-?-?-?-?-?-?-?- SM- continuing t o monitor bps, normal at home, no fajardo bv 10/02/22 -?-?-?-?-?-?-?-?-?-?-?-?- 36w 3d 255 lb 2 oz 132/89 Nega tive -?-?-?-?-?-?-?-?-?-?-?-?- Negative 140 -?-?-?-?-?-?-?-?-?-?-?-?- SM- no vb lof go od fm n oregular ctx BS reviewed SM- no vb lof good fm n oreg ular ctx BPs reviewed ROS Constitutional Constitutional: Reports systems reviewed and no addt'l complaints, except as documented Gastrointestinal Gastrointestinal: Denies bloating, constipation, cramping, diarrhea, nausea or vomiting Genitourinary Genitourinary: Reports other Details: Denies vaginal odor, vaginal bleeding, or vaginal discharge ; Denies difficulty urinating or flank pain Physical Exam HEENT normocephalic Resp normal respiratory effort and normal air movement no CVA tenderness Extremity normal to inspection General Extremity: edema bilateral (trace ) NST FHR Rate Baby A Baseline: 140 Variability:: Moderate Accelerations:: 15 x 15 Decelerations:: None NST Reactive:: Yes FHR Category:: Category I Assessment & Plan (1) Depression: COMMENT: counseling and celexa in past (2) Gestational hypertension affecting first : COMMENT: STO 09/21-28. BMZ given. no proteinuria, platelets initially dropped and then stabilized. plan 2x weekly nsts as outpatient and deliver at 37 weeks. PLAN: Plan NST reactive celestone #2 given Charges/Coding Multi Select Codes Urinary/Genital Urinary/Genital CPT Codes: 93192-44 non-stress test Interp
== END 2022-09-22 20:00 | disposition home or self-care (01) ==
LOC: WPOUT 19:00 → WP 19:01
PROVIDERS: PCP Family Medicine; Referring Provider Obstetrics & Gynecology; Visit Provider Obstetrics & Gynecology
DX: O13.3 Gestational [pregnancy-induced] hypertension without significant proteinuria, third trimester (principal); D69.6 Thrombocytopenia, unspecified; O99.343 Other mental disorders complicating pregnancy, third trimester; F32.A Depression, unspecified; Z3A.34 34 weeks gestation of pregnancy; O09.513 Supervision of elderly primigravida, third trimester; O99.213 Obesity complicating pregnancy, third trimester; O99.113 Other diseases of the blood and blood-forming organs and certain disorders involving the immune mechanism complicating pregnancy, third trimester; F41.9 Anxiety disorder, unspecified
CPT/HCPCS: 76819; 96372; 99221; G0378; J0702

== ENCOUNTER → 2022-10-02 | Outpatient (CLI) | payer OTHER, SELFPAY | END | disposition home or self-care (01) | LOC: LABSPEC 14:23 | PROVIDERS: PCP Family Medicine; Referring Provider Obstetrics & Gynecology; Visit Provider Obstetrics & Gynecology | DX: O09.90 Supervision of high risk pregnancy, unspecified, unspecified trimester (principal) | CPT/HCPCS: 87081 ==

== ENCOUNTER 2022-10-06 06:50 | Inpatient (IN) | payer OTHER, SELFPAY ==
[2022-10-06] VITALS (30 sets, daily range): BP systolic 135–173; BP diastolic 72–93; PULSE 66–108; TEMP 36.7–37.4; O2SAT 96–99; BMI 39.6
--- NOTE | 2022-10-06 07:11 | HP.PCM.OB_ITS ---
HPI - General General Date of Admission: 10/06/22 HPI Narrative MARIVEL HURTADO, is a 42 F who presents for IOL secondary to GHTN. she denies any vb lof admits good fm no regular ctx Maternal Data Information IVANA Calculator Estimated Delivery Date Method Current WG Current Estimate 10/27/22 LMP (Certain) 37w 0d Other Estimates 10/24/22 Ultrasound #1 37w 3d PFSH PFSH Medical History Anxiety Fibrocystic changes of left breast Left breast lump Low-lying placenta in second trimester Migraine Primary female infertility Home Medications prenat.vits,timoteo,qhu-dzux-xkrrk 1 tab PO DAILY 05/10/22 [History Last Taken 09/20/22 22:00] compress.stocking,knee,reg,lrg #2 ea 06/06/22 [Rx Last Taken Unknown] breast pump #1 ea 08/28/22 [Rx Last Taken Unknown] ferrous sulfate 142 mg (45 mg iron) tablet,extended release (Slow Fe) 142 mg PO DAILY 09/21/22 [History Last Taken 09/21/22 10:00] nystatin 100,000 unit/gram topical powder (Nystop) 1 applic topical BID #45 ea 09/22/22 [Rx Last Taken Unknown] Allergy/AdvReac Type Severity Reaction Status Date / Time penicillin G Allergy Mild Other Verified 10/02/22 11:25 Family History Father Cancer Prostate Grandmother CVA (cerebral vascular accident) Mother Brain aneurysm CVA (cerebral vascular accident) Brain tumor Surgical History History of appendectomy History of foot surgery Social History adopted: No household members: spouse housing: house current occupational status: employed 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 pets and animals: No history of recent travel: No sexually active: Yes Smoking Status: Never smoker alcohol intake: never substance use type: does not use well-balanced diet: daily or most days caffeine: Yes Type: tea Number of servings: 2 eating out: rarely or never during the past year weight has: remained stable what type of physical activity do you participate in: none bubba/pentecostalism: None seatbelt use: always do you feel safe at home: Yes additional social history: Bhupinder- Communications Technologist 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 History 1 Elective abortions Hx Para 0 Spontaneous abortions Hx # Term Pregnancies Ectopic pregnancies Hx # Pregnancies Multiple births # of living children Visit Details Expected Delivery Route/Plan Labor Preferences- CB/BF classes: [] labor support person: [] labor intervention preferences: [] pain management options preferred: [] cut cord/dad catch: [] : [] PP control planned: [] discussed possible routes of delivery and associated risks: [] special requests: [] Plans Covid status: discussed Flu vaccine: discussed Tdap vaccine: given Rhogam: na LARC form signed: [] movement and labor precautions reviewed. Problem list reviewed and updated with the most current plan of care details and appropriate orders placed. Relevant counseling for the gestational age provided. Continue routine care and follow up unless otherwise noted in visit notes/problem list details OB Flowsheet Initial Weight: Not Recorded Date -?-?-?-?-?-?-?-?-?-?-?-?- EGA Weight BP Urine Prot -?-?-?-?-?-?-?-?-?-?-?-?- Glucose FHR FuHt Pres Dilation -?-?-?-?-?-?-?-?-?-?-?-?- Effaced St Visit Note 03/30/22 -?-?-?-?-?--?-?-?-?-?-?-?- 9w 6d 226 lb 4 oz 124/83 Nega tive -?-?-?-?-?-?-?-?-?-?-?-?- Negative 160 -?-?-?-?-?-?-?-?-?-?-?-?- SM- CRL 3 cm con s with LMP 04/14/22 -?-?-?-?-?-?-?-?-?-?-?-?- 12w 0d 230 lb Negative -?-?-?-?-?-?-?-?-?-?-?-?- Negative 160 -?-?-?-?-?-?-?-?-?-?-?-?- SM- no vb lof cr amping reviewed results. 05/12/22 -?-?-?-?-?-?-?-?-?-?-?-?- 16w 0d 239 lb 4 oz 140/83 131/78 Negative -?-?-?-?-?-?-?-?-?-?-?-?- Negative 163 -?-?-?-?-?-?-?-?-?-?-?-?- JV- no lof, vagi nal, bleeding, or cramping. has yeast and monistat did not help. will try diflucan. saw retail property manager and plan to repeat the plts next visit 06/06/22 -?-?-?-?-?-?-?-?-?-?-?-?- 19w 4d 238 lb 4 oz 138/82 Nega tive -?-?-?-?-?-?-?-?-?-?-?-?- Negative 141 -?-?-?-?-?-?--?-?-?-?-?-?- JV- restless leg s bothering her. we discussed remedies. has anatomy scan scheduled. pt will start iron. normal cbc today however. 07/03/22 -?-?-?-?-?-?-?-?-?-?-?-?- 23w 3d 244 lb 8 oz 128/80 Nega tive -?-?-?-?-?-?-?-?-?-?-?-?- Negative 150 -?-?-?-?-?-?-?-?-?-?-?-?- SM- no vb lof cr amping 08/01/22 -?-?-?-?-?-?-?-?-?-?-?-?- 27w 4d 246 lb 136/79 Negative -?-?-?-?-?-?-?-?-?-?-?-?- Negative 155 33 -?-?-?-?-?-?-?-?-?-?-?-?- JV- has growth s can next visit and every 4 weeks. gct today JV- has growth scan next vis it and every 4 weeks. gct today and passed 1 hr. 08/14/22 -?-?-?-?-?-?-?-?-?-?-?-?- 29w 3d 247 lb 8 oz 123/77 -?-?-?-?-?-?-?-?-?-?-?-?- 150 33 -?-?-?-?-?-?-?-?-?-?-?-?- SM- no vb lof go od fm n oregular ctx tdap and discussed extra testing 09/01/22 -?-?-?-?-?-?-?-?-?-?-?-?- 32w 0d 252 lb 136/82 136/82 Negative -?-?-?-?-?-?-?-?-?-?-?-?- Negative 130 34 -?-?-?-?-?-?-?-?-?-?-?-?- KW-no lof/ctx/vb . +FM Rash on inner left thigh. 09/07/22 -?-?-?-?-?-?-?-?-?-?-?-?- 32w 6d 253 lb 2 oz 134/83 -?-?-?-?-?-?-?-?-?-?-?-?- -?-?-?-?-?-?-?-?-?-?-?-?- MH-NST only reac tive 09/15/22 -?-?-?-?-?-?-?-?-?-?-?-?- 34w 0d 256 lb 6 oz 129/81 Nega tive -?-?-?-?-?-?-?-?-?-?--?-?- Negative 140 -?-?-?-?-?-?-?-?-?-?-?-?- SM- no vb lof go od fm no regular ctx 09/21/22 -?-?-?-?-?-?-?-?-?-?-?-?- 34w 6d 257 lb 4 oz 141/85 Nega tive -?-?-?-?-?-?-?-?-?-?-?-?- Negative 140 -?-?-?-?-?-?-?-?-?-?-?-?- SM- to l and d f or further evaluation 09/29/22 -?-?-?-?-?-?-?-?-?-?-?-?- 36w 0d 251 lb 4 oz 138/87 Trac e -?-?-?-?-?-?-?-?-?-?-?-?- Negative 140 -?-?-?-?-?-?-?-?-?-?-?-?- SM- continuing t o monitor bps, normal at home, no fajardo bv 10/02/22 -?-?-?-?-?-?-?-?-?-?-?-?- 36w 3d 255 lb 2 oz 132/89 Nega tive -?-?-?-?-?-?-?-?-?-?-?-?- Negative 140 -?-?-?-?-?-?-?-?-?-?-?-?- SM- no vb lof go od fm n oregular ctx BS reviewed SM- no vb lof good fm n oreg ular ctx BPs reviewed 10/06/22 -?-?-?-?-?-?-?-?-?-?-?-?- 37w 0d 253 lb 6.4 oz -?-?-?-?-?-?-?-?-?-?-?-?- -?-?-?-?-?-?-?-?-?-?-?-?- NST FHR Rate Baby A Baseline: 130 Variability:: Moderate Accelerations:: 15 x 15 Decelerations:: None NST Reactive:: Yes FHR Category:: Category I Uterine Activity:: irregular ROS Constitutional Constitutional: Reports systems reviewed and no addt'l complaints, except as documented Eyes Eyes: Denies change in vision ENT HEENT: Reports systems reviewed and no addt'l complaints, except as documented; Denies headache(s) Cardiovascular Cardiovascular: Reports systems reviewed and no addt'l complaints, except as documented; Denies chest pain or dyspnea Respiratory/Chest Respiratory/Chest: Reports systems reviewed and no addt'l complaints, except as documented Gastrointestinal Gastrointestinal: Reports systems reviewed and no addt'l complaints, except as documented; Denies abdominal pain Genitourinary Genitourinary: Reports systems reviewed and no addt'l complaints, except as documented, contractions Details: present (irregular) and movement Details: present; Denies dysuria or genital lesions Musculoskeletal Musculoskeletal: Reports systems reviewed and no addt'l complaints, except as documented Neurologic Neurologic: Reports systems reviewed and no addt'l complaints, except as documented Endocrine Endocrinology: Reports systems reviewed and no addt'l complaints, except as documented Physical Exam Const alert, oriented x3, no apparent distress and healthy appearing HEENT normocephalic and moist oral mucous membranes Head and Scalp: atraumatic Neck full ROM, no lymphadenopathy, supple and thyroid normal General: trachea midline Lymph Lymphatic: no lymphadenopathy noted Chest inspection of chest normal Resp normal respiratory effort Cardio regular rate GI normal to inspection, nondistended, normoactive bowel sounds, soft to palpation and non-tender Inspection: gravid external exam normal Manual OB Exam: estimated gestational size appropriate, presentation cephalic, dilated, effaced and station Extremity normal to inspection General Extremity: Negative for edema Skin no rashes or lesions noted Neuro no focal motor deficits and deep tendon reflexes 2+ bilaterally Motor Exam: strength 5/5 throughout and clonus absent Psych mental status grossly normal Labs Labs Labs: Blood Type B POSITIVE Antibody Screen NEGATIVE Hct 38.3 % (37-47) Hgb 12.4 g/dL (12.0-15.0) Syphilis Total Ab Non-reactive Rubella IgG Antibody Reactive (Nonreactive) Hep Bs Antigen Non-Reactive (Nonreactive) Chlamydia DNA (JAYMIE) Negative (Negative) Neisseria gonorrhoeae DNA (JAYMIE) Negative (Negative) HIV 1&2 Antibody Non-Reactive (Nonreactive) Glucose 1 Hr 50 gm 126 mg/dL (70-140) Assessment & Plan (1) Gestational hypertension affecting first : COMMENT: DAVIDE 09/21-. BMZ given. no proteinuria, platelets initially dropped and then stabilized. plan 2x weekly nsts as outpatient and deliver at 37 weeks. (2) AMA (advanced maternal age) multigravida 35+: (3) Thrombocytopenia affecting : COMMENT: likely GTP, follow cbc monthly. Hematology consult done. (4) Obesity affecting : COMMENT: 1 TM GCT nl, encourage healthy weight gain (5) Primigravida of advanced maternal age: COMMENT: genetic counseling provided,NIPT low resk, plan third trimester testing and 39 week delivery, growth US Q4wks after 28 wks and weekly NST's @ 32 weeks. Growth US normal (6) Supervision of high-risk : COMMENT: PRR , IVANA 10/27/22, boy, Bhupinder (7) : QUALIFIERS: Weeks of gestation: 36 weeks Qualified Code(s): Z3A.36 - 36 weeks gestation of COMMENT: GBS neg, NIPT low risk, discussed carrier testing (8) Depression: COMMENT: counseling and celexa (9) Encounter for induction of labor: PLAN: Plan Patient presents IOL, plan management for with cytotec. Pain management: plans epidural. if able GBS negative. Management of any complications: none I have reviewed the [facility] and made any clinically relevant updates.
[2022-10-06 07:48] LABS: Absolute Lymphocyte Count 1.48 X10^3/uL (0.83-4.51); Absolute Neutrophil Count 4.9 X10^3/uL (2.0-7.7); Basophil# 0.02 X10^3/uL; Basophil% 0.3 % (0-1); Eosinophil# 0.05 X10^3/uL; Eosinophils% 0.7 % (0-5); Hematocrit 38.3 % (37-47); Hemoglobin 12.5 g/dL (12.0-15.0); Lymphocyte # 1.48 X10^3/ul (0.83-4.51); Lymphocyte % 20.8 % (19-41); Mean Corp Hgb Conc 32.6 g/dL (32-36); Mean Corpuscular Hgb 30.9 pg (27.0-32.0); Mean Corpuscular Volume 94.8 fL (81-99); Mean Platelet Vol. 14.3 fl (6.2-12.0); Monocyte# 0.57 X10^3/uL; NRBC Flagged by Analyzer 0 % (0-5); Neutrophil # 4.93 X10^3/uL (2.7-7.7); Neutrophil % 69.2 % (47-70); POSITIVE COUNT YES; Platelet Count 99 K/mm3 (150-450); RBC Distribution Width CV 13.8 % (11.6-14.6); RBC Distribution Width SD 47.2 fl (35.1-43.9); Red Blood Count 4.04 M/mm3 (4.2-5.4); White Blood Count 7.1 K/mm3 (4.4-11.0)
[2022-10-06 07:51] LABS: Differential Indicated SCAN CRITERIA MET
[2022-10-06] MEDS: miSOPROStol 25 MCG TABLET VAGINAL (08:07)
[2022-10-06 08:41] LABS: Platelet Estimate MOD DEC (ADEQ)
[2022-10-06 09:09] LABS: Syphilis Antibodies Non-reactive
[2022-10-06] MEDS: Lactated Ringers 1,000 ML 50 ML IV (12:45)
[2022-10-06] MEDS: 0.9% Normal Saline Single 100 ML IV.SOLN. INTRA-UTER (12:52)
[2022-10-06] MEDS: dexAMETHasone 10 MG/ML Vial 6 MG IV (13:51)
[2022-10-06] MEDS: Oxytocin 15 Units/NS 250ml 15 UNITS/250 ML IV.SOLN 2 UNITS IV (13:55)
--- NOTE | 2022-10-06 14:02 | PCM.PN.BLA ---
Progress Note episode of vaginal bleedign with cintron bulb placement- remoevd a few minutes after. FHT cat I throughout, suspect cervical in origin, vaginal exam revealed no laceration or abnormally palpated material. exp management for now before starting pitocin
--- NOTE | 2022-10-06 20:20 | NURSING ---
Pitocin increase documented in QS at 1532 for 6milliunits/minute by Srinivas. Not documented on MAR
[2022-10-06] MEDS: Ondansetron 4 MG/2 ML Vial IV (22:08)
[2022-10-06] MEDS: Acetaminophen 500 MG Tablet PO (22:08)
[2022-10-06] MEDS: 0.9% Saline Lock 10 ML Syringe IV (22:48)
[2022-10-06] MEDS: fentaNYL 100 MCG/2 ML Ampul IV (22:58)
[2022-10-06 23:44] LABS: Hematocrit 38.4 % (37-47); Hemoglobin 12.8 g/dL (12.0-15.0); Mean Corp Hgb Conc 33.3 g/dL (32-36); Mean Corpuscular Hgb 31.2 pg (27.0-32.0); Mean Corpuscular Volume 93.7 fL (81-99); POSITIVE MORPHOLOGY YES; Platelet Count 106 K/mm3 (150-450); RBC Distribution Width CV 13.9 % (11.6-14.6); RBC Distribution Width SD 46.9 fl (35.1-43.9)
[2022-10-06 23:46] LABS: Scan Indicated on CBC? Y/N YES- FLAGS NOTED
[2022-10-06] MEDS: LACTATED RINGERS 500 ML 999 ML IV (23:52)
[2022-10-07] VITALS (40 sets, daily range): BP systolic 128–157; BP diastolic 50–90; PULSE 64–116; RESP 16–18; TEMP 36.6–37.4; O2SAT 93–100
[2022-10-07 00:17] LABS: Differential Comment SCANNED
[2022-10-07] MEDS: fentaNYL-bupivacaine (epidural) 100 ML BAG EPIDURAL ×2 (01:06→05:27)
[2022-10-07] MEDS: 0.9% Saline Lock 10 ML Syringe IV (02:20)
[2022-10-07] MEDS: Lactated Ringers 1,000 ML 200 ML IV ×2 (02:20→07:28)
[2022-10-07] MEDS: Ondansetron 4 MG/2 ML Vial IV (03:31)
[2022-10-07] MEDS: proCHLORPERazine 10 MG/2 ML Vial IV (05:32)
--- NOTE | 2022-10-07 06:01 | OP.PCM_ITS ---
Assessment & Plan (1) Depression: COMMENT: counseling and celexa in past (2) : QUALIFIERS: Weeks of gestation: 36 weeks Qualified Code(s): Z3A.36 - 36 weeks gestation of COMMENT: GBS neg, NIPT low risk, discussed carrier testing (3) Supervision of high-risk : COMMENT: PRR , IVANA 10/27/22, boy, Bhupinder (4) Primigravida of advanced maternal age: COMMENT: genetic counseling provided,NIPT low resk, plan third trimester testing and 39 week delivery, growth US Q4wks after 28 wks and weekly NST's @ 32 weeks. Growth US normal (5) Obesity affecting : COMMENT: 1 TM GCT nl, encourage healthy weight gain (6) Thrombocytopenia affecting : COMMENT: likely GTP, follow cbc monthly. Hematology consult done. (7) AMA (advanced maternal age) multigravida 35+: (8) Gestational hypertension affecting first : COMMENT: STO 09/21-. BMZ given. no proteinuria, platelets initially dropped and then stabilized. plan 2x weekly nsts as outpatient and deliver at 37 weeks. (9) Encounter for induction of labor: (10) Vaginal delivery: COMMENT: IOL GHTN SM 37 boy Maternal Data Information IVANA Calculator Estimated Delivery Date Method Current WG Current Estimate 10/27/22 LMP (Certain) 37w 1d Other Estimates 10/24/22 Ultrasound #1 37w 4d Vaginal Delivery Operative Information Date of Procedure: 10/07/22 Pre-Operative Diagnosis: see a/p diagnoses Post-Operative Diagnosis: same Surgery / Procedure Performed: Spontaneous Vaginal Delivery Type of Anesthesia: Epidural Special Medications: none Estimated Blood Loss: 500 Fluids Replaced: crystalloid Findings Description of Procedure: Patient began pushing and delivered the head in the CECE presentation. The head was delivered atraumatically and a loose nuchal cord ?1 was identified and the infant delivered through without complication. The anterior and posterior shoulders delivered without complication followed by the rest of the and the was placed on the maternal abdomen. Delayed cord clamping was empl oyed for approximately 60 seconds. Cord was clamped and cut and gentle traction was applied to the cord and the placenta delivered spontaneously immediately following it was noted to be intact with three-vessel cord. The perineum and vagina were inspected and [noted to have a second degree perineal laceration which was repaired in the usual fashion with 3-0 vicryl rapide.] . EBL was 500. Patient and infant tolerated delivery well. Amniotic Fluid Description: Clear Placental Delivery Description: Spontaneous Placenta Disposition: [facility] Cord Vessel Description: 3 Vessels Cord Entanglement: None Delayed Cord Clamping: Yes Post Vaginal Delivery Medications Given After Delivery: IV Pitocin Episiotomy Description: None Complication Complications: None Procedures Urinary/Genital [id number]: [id number] Vaginal Delivery [facility]
--- NOTE | 2022-10-07 06:06 | PCM.DC ---
Discharge Instructions Diet Discharge Diet: No restrictions Activity Discharge Activity: Return to Normal Activity, May Drive, May Shower and May Take a Tub Bath (in 4 weeks) May resume sexual activity in: 6-8 weeks (after seen by OB provider) Weight Bearing Status: Full weight bearing Lifting Restrictions: none Dressing / Incision Call your doctor if you observe: Fever of 101 or Higher, Inability to urinate, Using more than 1 pad per hour (for more than 2 hours in a row or more), Shortness of breath, Dizziness, Chest pain and - (headache not controlled with tylenol, change in vision) Follow Up Care When: in 6 weeks for visit, call the office to make the appointment. If you had elevated blood pressures call the office to be seen within 1 week. Test Results: Test results from this visit will be discussed in further detail at your follow-up appointment, if applicable. Discharge Plan Admission Admit Date/Time: 10/06/22 06:50 Attending Provider: Tamiko Pedro Primary Care Provider: Rosy Burgos Discharge Orders/Prescriptions Prescriptions: No Action prenat.vits,timoteo,fsh-xupl-vcolo Tablet 1 tab PO DAILY Slow Fe 142 mg (45 mg iron) Tablet Extended Release 142 mg PO DAILY nystatin [Nystop] 100,000 unit/gram powder 1 applic topical BID (DME) compress.stocking,knee,reg,lrg Misc See Rx Instructions .Route Qty: 2 0RF Rx Instructions: As directed (DME) breast pump Device See Rx Instructions .ROUTE .MEDSUPPLY Qty: 1 0RF Rx Instructions: As directed Referrals / Follow Up: Rosy Burgos MD [Primary Care Provider] - Disposition Disposition (needs filled in before D/C Order can be placed): Home, Self Care
[2022-10-07] MEDS: Oxytocin 15 Units/NS 250ml 15 UNITS/250 ML IV.SOLN 83 UNITS IV (09:16)
--- NOTE | 2022-10-07 09:45 | RAD_ITS ---
STUDY: X-RAY - PELVIS REASON FOR EXAM: Female, 42 years old. Sponge count -- portable TECHNIQUE: One view of the pelvis was obtained. COMPARISON: None. FINDINGS: There is a non-specific bowel gas pattern. Normal visualized soft tissue structures. Normal bilateral iliac wings, sacroiliac joints and visualized sacrum. Normal visualized bilateral superior and inferior pubic rami. Normal pubic symphysis. Normal ischial tuberosities. Normal visualized right femoral head. Normal right acetabulum. Normal right hip joint. Normal visualized left femoral head. Normal left acetabulum. Normal left hip joint. RAD/Pelvis 1 or 2 Views IMPRESSION: Normal x-ray examination of the pelvis. No plain film evidence of retained sponge or surgical instrument Electronically Signed: Bhupinder Carvajal MD at 10:43 EDT ,
[2022-10-07] MEDS: Acetaminophen 500 MG Tablet 1000 MG PO ×2 (11:54→18:07)
[2022-10-07] MEDS: Naproxen 500 MG Tablet PO ×2 (13:59→23:48)
[2022-10-07] MEDS: Nystatin Powder 15gm Bottle 1 APPLIC TOPICAL (15:15)
[2022-10-07] MEDS: Iron Polysaccharide Complex 150 MG CAPSULE PO (15:15)
--- NOTE | 2022-10-07 20:06 | CASEMGMT ---
Social Work Assessment Labor and Delivery Unit Patient Address: [address] [place] [address] [address], [place] Phone number: [phone] Date of Referral: 10/07 Time of Referral: 7:30 Referred By: Date of Intervention: 10/07 Time of Intervention: 7:30 Reason for Referral: Hx of depression History obtained from: medical records and mother of baby (MOB) and FOB Household composition: MOB, FOB and baby Patient's parent/guardian status: Parents have been for over 20 years and reside together. FOB is supportive and taking 6 weeks off. Medical History: MOB has no prior children or pregnancies. MOB reports healthy besides some blood pressure concerns. MOB had appropriate care. Baby boy, Prashant Roe, weighed 6.9 lbs with 8/9 apgars and has no medical concerns. Educational Status: Graduates without literacy concerns. Financial Status: No financial concerns. Infant Supplies: Car seat in the room, crib, bassinet, and supplies available at home. Childcare/Caregiver(s): Paternal grandparents live next door. Maternal grandparents in [place]. Transportation: No concerns Programs/Agencies Involved: None Children Services/Legal Issues: None Behavioral Health Issues: MOB had hx of depression and counseling/medication, denies any current depression concerns. MOB/FOB deny any family history of mental illness. MOB/FOB deny any substance abuse concerns or family substance abuse history Family/Social Stressors: Denies any current family concerns. Support Systems: Depression/Shaken Baby/Safe Sleeping important topics so have this so we can indicate education provided, responses as indicated, etc. ASSESSMENT: Safe Plan of Care for related to substance use: only need this if there is a concern about substance use and/or in utero exposure to substances. PLAN: No other services requested or indicated.
--- NOTE | 2022-10-07 20:17 | CASEMGMT ---
Social Work Assessment Labor and Delivery Unit Patient Address: [address] [place] [address] [address], [place] Phone number: [phone] Date of Referral: 10/07 Time of Referral: 7:30 Referred By: Date of Intervention: 10/07 Time of Intervention: 7:30 Reason for Referral: Hx of depression History obtained from: medical records and mother of baby (MOB) and FOB Household composition: MOB, FOB and baby Patient's parent/guardian status: Parents have been for over 20 years and reside together. FOB is supportive and taking 6 weeks off. Medical History: MOB has no prior children or pregnancies. MOB reports healthy besides some blood pressure concerns. MOB had appropriate care. Baby boy, Prashant Roe, weighed 6.9 lbs with 8/9 apgars and has no medical concerns. Educational Status: Graduates without literacy concerns. Financial Status: No financial concerns. Infant Supplies: Car seat in the room, crib, bassinet, and supplies available at home. Childcare/Caregiver(s): Paternal grandparents live next door. Maternal grandparents in [place]. Transportation: No concerns Programs/Agencies Involved: None Children Services/Legal Issues: None Behavioral Health Issues: MOB had hx of depression and counseling/medication, denies any current depression concerns. MOB/FOB deny any family history of mental illness. MOB/FOB deny any substance abuse concerns or family substance abuse history Family/Social Stressors: Denies any current family concerns. Support Systems: Parents and siblings of MOB/FOB Depression: Provided education and resources, parents receptive. Shaken Baby: Provided education and resources, parents receptive. Safe Sleeping: Provided education and resources, parents receptive. ASSESSMENT: Parents had no concerns at time of assessment and interacted appropriately. PLAN: No other services requested or indicated. Lise Wesley ARCHERY INSTRUCTOR, MARINE ANIMAL TRAINER
[2022-10-08] MEDS: Acetaminophen 500 MG Tablet 1000 MG PO ×2 (02:38→09:31)
[2022-10-08 04:20] VITALS: BP 123/72; PULSE 81; RESP 16; TEMP 36.8
[2022-10-08 04:21] VITALS: BP 123/72; PULSE 81
[2022-10-08 07:59] VITALS: BP 140/79; PULSE 79; PULSE 81; RESP 16; TEMP 36.7; O2SAT 97
--- NOTE | 2022-10-08 08:45 | PN.OBGYN_ITS ---
Subjective Subjective Patient doing well without complaints. Tolerating PO. Ambulating and voiding without difficulty. Feeding well. Denies chest pain, shortness of breath, calf pain/swelling, fevers, chills, lightheadedness. Objective Data Objective Data Vital Signs: Vital Signs Temp Pulse Resp BP Pulse Ox O2 Del Method 98.0 F 79 16 140/79 H 97 Room Air 10/08/22 07:59 10/08/22 07:59 10/08/22 07:59 10/08/22 07:59 10/08/22 07:59 10/08/22 07:59 Oxygen Delivery Method Room Air Weight: 253 lb 6.4 oz Body Mass Index (BMI) 39.6 Intake & Output: Intake and Output for Last 24 Hours 10/06/22 10/07/22 10/08/22 23:59 23:59 23:59 Intake Total 547.94 / 547.94 3869.59 / 3869.59 Output Total 450 / 450 800 / 800 400 / 400 Balance 97.94 / 97.94 3069.59 / 3069.59 -400 / -400 Lab / Micro Data Result Diagrams: 10/06/22 23:23 Radiography Diagnostic Testing: Radiology Impression Pelvis X-Ray 10/07/22 09:45 IMPRESSION: Normal x-ray examination of the pelvis. No plain film evidence of retained sponge or surgical instrument Electronically Signed: Bhupinder Carvajal MD at 10:43 EDT Reading Location ID and State: [facility] , Service support , ROS Constitutional Constitutional: Reports systems reviewed and no addt'l complaints, except as documented; Denies anorexia or headache(s) Cardiovascular Cardiovascular: Reports systems reviewed and no addt'l complaints, except as documented; Denies dizziness, dyspnea, nausea or tachypnea Respiratory/Chest Respiratory/Chest: Reports systems reviewed and no addt'l complaints, except as documented; Denies cough, dyspnea, shortness of breath at rest or tachypnea Gastrointestinal Gastrointestinal: Reports systems reviewed and no addt'l complaints, except as documented; Denies abdominal pain, constipation or nausea Genitourinary Genitourinary: Reports systems reviewed and no addt'l complaints, except as documented; Denies burning urination, difficulty urinating, dysuria, urinary frequency or urinary incontinence Musculoskeletal Musculoskeletal: Reports systems reviewed and no addt'l complaints, except as documented Integumentary Integumentary: Reports systems reviewed and no addt'l complaints, except as documented Neurologic Neurologic: Reports systems reviewed and no addt'l complaints, except as documented; Denies abnormal speech, dizziness or headache(s) Psychiatric Psychiatric: Reports systems reviewed and no addt'l complaints, except as documented Endocrine Endocrinology: Reports systems reviewed and no addt'l complaints, except as documented Hematologic/Lymphatic Hematologic/Lymphatic: Reports systems reviewed and no addt'l complaints, except as documented Physical Exam Const alert, oriented x3 and no apparent distress Neck full ROM Chest inspection of chest normal and inspection of breasts normal Nipple/Areola: nipples/areola normal Resp normal respiratory effort, normal air movement and no retractions Effort and Inspection: able to speak in complete sentences and symmetric chest movement GI soft to palpation Bladder / Kidney Exam: bladder normal to palpation Extremity normal to inspection and full ROM Psych mental status grossly normal, thought process normal and cooperative Assessment & Plan (1) Vaginal delivery: COMMENT: IOL GHTN SM 37 boy PLAN: s/p PPD # 1 1. routine post delivery care 2. breast feeding- support given 3. rh positive 4. rubella immune 5. D/C home (2) Depression: COMMENT: counseling and celexa in past (3) Gestational hypertension affecting first : COMMENT: STO 09/21-. BMZ given. no proteinuria, platelets initially dropped and then stabilized. plan 2x weekly nsts as outpatient and deliver at 37 weeks. Charges/Coding Multi Select Codes Urinary/Genital Urinary/Genital CPT Codes: No Charge
[2022-10-08] MEDS: Senna/Docusate Sodium 1 Tablet PO (09:30)
[2022-10-08 15:43] VITALS: BP 140/83; PULSE 76; RESP 16; TEMP 37.1; O2SAT 99
[2022-10-08 15:44] VITALS: BP 140/83; PULSE 76
== END 2022-10-08 16:00 | disposition home or self-care (01) | DRG 807 ==
PROVIDERS: Admitting Provider Obstetrics & Gynecology; PCP Family Medicine; Referring Provider Obstetrics & Gynecology; Visit Provider Obstetrics & Gynecology
DX: O13.4 Gestational [pregnancy-induced] hypertension without significant proteinuria, complicating childbirth (principal); Z37.0 Single live birth; E66.9 Obesity, unspecified; F32.A Depression, unspecified; O99.344 Other mental disorders complicating childbirth; O69.81X0 Labor and delivery complicated by cord around neck, without compression, not applicable or unspecified; O70.1 Second degree perineal laceration during delivery; Z3A.36 36 weeks gestation of pregnancy; O99.214 Obesity complicating childbirth; O46.93 Antepartum hemorrhage, unspecified, third trimester
CPT/HCPCS: 59025; 59050; 72170; 85025; 85027; 86780; 86850; 86900; 86901; 99221; J7120; A4216; G0378; J2405

== ENCOUNTER → 2022-10-24 | Outpatient (CLI) | payer OTHER, SELFPAY ==
[2022-10-24 14:05] LABS: Absolute Lymphocyte Count 1.72 X10^3/uL (0.83-4.51); Absolute Neutrophil Count 4.5 X10^3/uL (2.0-7.7); Basophil# 0.01 X10^3/uL; Basophil% 0.1 % (0-1); Eosinophil# 0.09 X10^3/uL; Eosinophils% 1.3 % (0-5); Hematocrit 39.8 % (37-47); Hemoglobin 12.3 g/dL (12.0-15.0); Lymphocyte # 1.72 X10^3/ul (0.83-4.51); Lymphocyte % 25.7 % (19-41); Mean Corp Hgb Conc 30.9 g/dL (32-36); Mean Corpuscular Hgb 30.2 pg (27.0-32.0); Mean Corpuscular Volume 97.8 fL (81-99); Mean Platelet Vol. 12.4 fl (6.2-12.0); Monocyte# 0.34 X10^3/uL; Monocyte% 5.1 % (0-10); NRBC Flagged by Analyzer 0 % (0-5); Neutrophil % 67.2 % (47-70); Platelet Count 192 K/mm3 (150-450); RBC Distribution Width CV 13.7 % (11.6-14.6); RBC Distribution Width SD 48.8 fl (35.1-43.9); Red Blood Count 4.07 M/mm3 (4.2-5.4); White Blood Count 6.7 K/mm3 (4.4-11.0)
[2022-10-24 14:14] LABS: Protein, Urine (Random) 16.5 mg/dL (<11.9); Protein:Creat Ratio 399 mg/g CRE (0-200)
[2022-10-24 14:21] LABS: ALB/GLOB Ratio 0.9 RATIO (0.9-2.4); AST(SGOT) 13 U/L (15-37); Alanine Aminotransfer ALT/SGPT 18 U/L (13-56); Albumin, Serum 3.3 g/dL (3.2-5.0); Alkaline Phosphatase 85 U/L (45-117); Anion Gap 8 (5-15); BUN 12 mg/dL (7-18); BUN/Creat Ratio 12.9 RATIO (10-20); Calcium,Total 9.3 mg/dL (8.5-10.1); Chloride 105 mmol/L (98-107); Creatinine, Serum 0.93 mg/dL (0.55-1.02); EST Glomerular Filtration Rate 70 mL/min (>60); Est Glom Filt Rate - Afr Amer 84 mL/min (>60); Globulin 3.7 g/dL (2.2-4.2); Glucose 107 mg/dL (74-106); Sodium Level 141 mmol/L (136-145)
== END | disposition home or self-care (01) ==
LOC: PAVLAB 13:50
PROVIDERS: PCP Family Medicine; Referring Provider Advanced Practice Midwife; Visit Provider Advanced Practice Midwife
DX: O13.9 Gestational [pregnancy-induced] hypertension without significant proteinuria, unspecified trimester (principal); R60.0 Localized edema
CPT/HCPCS: 36415; 80053; 82570; 84156; 85025

== ENCOUNTER → 2022-10-31 | Outpatient (CLI) | payer OTHER, SELFPAY ==
[2022-10-31 12:27] LABS: Protein, Urine (Random) 11.2 mg/dL (<11.9); Protein:Creat Ratio 514 mg/g CRE (0-200)
== END | disposition home or self-care (01) ==
LOC: LABSPEC 11:48
PROVIDERS: PCP Family Medicine; Referring Provider Advanced Practice Midwife; Visit Provider Advanced Practice Midwife
DX: R60.0 Localized edema (principal)
CPT/HCPCS: 82570; 84156

== ENCOUNTER → 2022-12-05 | Outpatient (CLI) | payer OTHER, SELFPAY ==
[2022-12-05 11:08] LABS: Absolute Lymphocyte Count 1.33 X10^3/uL (0.83-4.51); Absolute Neutrophil Count 3.4 X10^3/uL (2.0-7.7); Basophil# 0.02 X10^3/uL; Basophil% 0.4 % (0-1); Eosinophil# 0.07 X10^3/uL; Eosinophils% 1.4 % (0-5); Hematocrit 44.4 % (37-47); Lymphocyte # 1.33 X10^3/ul (0.83-4.51); Lymphocyte % 25.9 % (19-41); Mean Corp Hgb Conc 31.5 g/dL (32-36); Mean Corpuscular Hgb 30.7 pg (27.0-32.0); Mean Corpuscular Volume 97.4 fL (81-99); Mean Platelet Vol. 12.4 fl (6.2-12.0); Monocyte# 0.32 X10^3/uL; Monocyte% 6.2 % (0-10); NRBC Flagged by Analyzer 0 % (0-5); Neutrophil # 3.37 X10^3/uL (2.7-7.7); Neutrophil % 65.7 % (47-70); Platelet Count 148 K/mm3 (150-450); RBC Distribution Width CV 13.2 % (11.6-14.6); RBC Distribution Width SD 47.2 fl (35.1-43.9); Red Blood Count 4.56 M/mm3 (4.2-5.4); White Blood Count 5.1 K/mm3 (4.4-11.0)
[2022-12-05 11:38] LABS: ALB/GLOB Ratio 1.1 RATIO (0.9-2.4); AST(SGOT) 11 U/L (15-37); Alanine Aminotransfer ALT/SGPT 19 U/L (13-56); Albumin, Serum 3.8 g/dL (3.2-5.0); Alkaline Phosphatase 60 U/L (45-117); Anion Gap 3 (5-15); BUN 9 mg/dL (7-18); BUN/Creat Ratio 9.1 RATIO (10-20); Calcium,Total 9.1 mg/dL (8.5-10.1); Chloride 109 mmol/L (98-107); Creatinine, Serum 0.99 mg/dL (0.55-1.02); EST Glomerular Filtration Rate 64 mL/min (>60); Est Glom Filt Rate - Afr Amer 78 mL/min (>60); Globulin 3.5 g/dL (2.2-4.2); Glucose 80 mg/dL (74-106); Potassium 4.5 mmol/L (3.5-5.1); Protein, Total 7.3 g/dL (6.4-8.2); Sodium Level 139 mmol/L (136-145); Thyroid Stim Hormone (TSH) 2.45 uIU/mL (0.358-3.74)
== END | disposition home or self-care (01) ==
LOC: PAVLAB 10:49
PROVIDERS: Obstetrics & Gynecology; PCP Family Medicine; Referring Provider Family Medicine; Visit Provider Family Medicine
DX: I89.0 Lymphedema, not elsewhere classified (principal)
CPT/HCPCS: 36415; 80053; 84443; 85025

== ENCOUNTER → 2023-01-26 | Outpatient (CLI) | payer OTHER, SELFPAY ==
--- NOTE | 2023-01-26 07:28 | US_ITS ---
EXAM: US PELVIS TRANSABDOMINAL AND TRANSVAGINAL, COMPLETE CLINICAL INDICATION: abnormal uterine bleeding 3.5 months , IUD placed in October, bleeding since delivery TECHNIQUE: Transabdominal and transvaginal pelvic ultrasound was performed with grayscale and color Doppler imaging. Transvaginal imaging was used for better evaluation of the endometrium and adnexa. COMPARISON: No relevant prior studies available. FINDINGS: UTERUS/CERVIX: 10 cm x 4.1 cm x 6 cm with hyperechoic endometrium without visible shadowing.. Anteverted. There is no uterine mass. Normal endometrial stripe thickness. There is shadowing from the IUD in the upper uterus on transvaginal exam. 6 mm fundal endometrial stripe. RIGHT OVARY: 3.4 cm x 3.7 cm x 3.1 cm overall size with documented eccentric blood flow and simple-appearing 3.5 cm x 2.6 cm x 2.8 cm cyst replacing much of the right ovary on transabdominal exam, this contains slight dependent hypoechoic debris on transvaginal exam.. Also 1.4 cm x 1.3 cm x 1.6 cm adjacent smaller simple-appearing cyst or follicle, but this contains slight internal fibrinous strands suspicious for hemorrhagic cyst on the transvaginal exam. Blood flow is present in the right ovary. LEFT OVARY: 5 cm x 5.6 cm x 2.9 cm with at least 2 adjacent anechoic cysts, the largest 2.5 cm x 1.8 cm x 2.1 cm and 2.1 cm x 2.6 cm x 1.2 0.1 cm respectively. There is minimal solid tissue but immediately adjacent blood flow. There is a left puf-hu-nks-paramedian 2.1 cm x 2.2 cm x 1.6 cm complex partially cystic structure with some nonvascular hypoechoic material, likely debris. FREE FLUID: None. BLADDER: Prominently distended, 15.2 cm x 7.8 cm x 10.8 cm with thin wall and no debris. US/Pelvic (Non ) IMPRESSION: Multiple adnexal cystic structures as described. Slight dependent intraluminal debris and faintly seen fibrinous strands in the 2 dominant right cysts respectively. Nonvascular material suspected to be debris in an extra-ovarian mildly complex cystic lesion of the left cul-de-sac, separate from the ovaries. No evidence of residual products of conception. Adequately positioned IUD with midline endometrial shadowing. Consider short-term follow-up in 1-2 months to evaluate stability or resolution of the multiple small but mildly complex cystic adnexal and cul-de-sac structures. Electronically Signed: Melissa Culp MD at 2:47 EDT ,
== END | disposition home or self-care (01) ==
LOC: OPUS 07:25
PROVIDERS: PCP Family Medicine; Referring Provider Obstetrics & Gynecology; Visit Provider Obstetrics & Gynecology
DX: N93.9 Abnormal uterine and vaginal bleeding, unspecified (principal); Z97.5 Presence of (intrauterine) contraceptive device
CPT/HCPCS: 76830; 76856

== ENCOUNTER → 2023-03-08 | Outpatient (CLI) | payer OTHER, SELFPAY ==
[2023-03-08 10:13] LABS: Absolute Lymphocyte Count 1.27 X10^3/uL (0.83-4.51); Absolute Neutrophil Count 3.7 X10^3/uL (2.0-7.7); Basophil# 0.02 X10^3/uL; Basophil% 0.4 % (0-1); Eosinophil# 0.08 X10^3/uL; Eosinophils% 1.5 % (0-5); Hemoglobin 13.4 g/dL (12.0-15.0); Lymphocyte # 1.27 X10^3/ul (0.83-4.51); Lymphocyte % 23.9 % (19-41); Mean Corp Hgb Conc 31.9 g/dL (32-36); Mean Corpuscular Hgb 30.4 pg (27.0-32.0); Mean Corpuscular Volume 95.2 fL (81-99); Mean Platelet Vol. 12.8 fl (6.2-12.0); Monocyte# 0.26 X10^3/uL; Monocyte% 4.9 % (0-10); NRBC Flagged by Analyzer 0 % (0-5); Neutrophil # 3.66 X10^3/uL (2.7-7.7); Neutrophil % 68.9 % (47-70); Platelet Count 145 K/mm3 (150-450); RBC Distribution Width CV 13.6 % (11.6-14.6); RBC Distribution Width SD 47.7 fl (35.1-43.9); Red Blood Count 4.41 M/mm3 (4.2-5.4); White Blood Count 5.3 K/mm3 (4.4-11.0)
[2023-03-08 10:28] LABS: Hemoglobin A1c 5.1 % (3.8-5.6)
[2023-03-08 10:29] LABS: Vitamin B12 789 pg/mL (211-911)
[2023-03-08 10:34] LABS: ALB/GLOB Ratio 1.2 RATIO (0.9-2.4); AST(SGOT) 9 U/L (15-37); Alanine Aminotransfer ALT/SGPT 20 U/L (13-56); Albumin, Serum 4.1 g/dL (3.2-5.0); Alkaline Phosphatase 57 U/L (45-117); Anion Gap 2 (5-15); BUN 13 mg/dL (7-18); BUN/Creat Ratio 15.1 RATIO (10-20); Calcium,Total 9.1 mg/dL (8.5-10.1); Chloride 106 mmol/L (98-107); Creatinine, Serum 0.86 mg/dL (0.55-1.02); EST Glomerular Filtration Rate 76 mL/min (>60); Est Glom Filt Rate - Afr Amer 92 mL/min (>60); Ferritin 37 ng/mL (8-252); Globulin 3.4 g/dL (2.2-4.2); Glucose 99 mg/dL (74-106); Protein, Total 7.5 g/dL (6.4-8.2); Sodium Level 136 mmol/L (136-145); Thyroid Stim Hormone (TSH) 2.19 uIU/mL (0.358-3.74)
== END | disposition home or self-care (01) ==
PROVIDERS: PCP Family Medicine; Referring Provider Family Medicine; Visit Provider Family Medicine
DX: M79.89 Other specified soft tissue disorders (principal)
CPT/HCPCS: 36415; 80053; 82607; 82728; 83036; 83735; 84443; 85025

== ENCOUNTER → 2023-04-13 | Outpatient (CLI) | payer OTHER, SELFPAY ==
--- NOTE | 2023-04-13 10:37 | ECHOD_ITS ---
Reason For Study: SWELLING OF LES Procedure This was a 2D Doppler, Color Flow transthoracic echocardiogram. Exam performed in department. Left Ventricle Normal left ventricle. The estimated ejection fraction is 50-55 %. Right Ventricle Normal right ventricle. Normal systolic function. Atria The left atrium is mildly enlarged. The right atrium is mildly enlarged. Mitral Valve The mitral valve is structurally normal. No prolapse or stenosis seen. Trivial mitral valve insufficiency. Tricuspid Valve Normal tricuspid valve. Trivial tricuspid valve insufficiency. Aortic Valve Normal aortic valve. No aortic valve insufficiency. Pulmonic Valve The pulmonic valve is not well visualized. Great Vessels Normal aortic root. MMode/2D Measurements & Calculations LVIDd: 5.3 cm IVSd: 0.98 cm Ao root diam: 2.9 cm LVIDs: 4.1 cm LVPWd: 0.85 cm FS: 23.5 % LAV(MOD-bp): 50.9 ml LVAd ap4: 30.3 cm2 SV(MOD-sp4): 51.5 ml LAV(MOD-bp) Indexed: 22.7 ml/m2 LVLd ap4: 8.0 cm LAV(MOD-sp2): 52.6 ml EDV(MOD-sp4): 97.9 ml LAV(MOD-sp4): 46.1 ml EDV(sp4-el): 97.0 ml LVAs ap4: 19.5 cm2 LVLs ap4: 7.1 cm ESV(MOD-sp4): 46.4 ml ESV(sp4-el): 45.4 ml EF(MOD-sp4): 52.6 % EF(sp4-el): 53.2 % SV(sp4-el): 51.6 ml LA dimension(2D): 3.8 cm LA A4 area: 17.4 cm2 RA A4 area: 12.9 cm2 Time Measurements MV dec time: 0.18 sec Doppler Measurements & Calculations MV E max иван: 99.2 cm/sec Lat Peak E' Иван: 16.0 cm/sec Med Peak E' Иван: 8.8 cm/sec MV A max иван: 76.9 cm/sec E/E' lat: 6.2 E/E' med: 11.3 MV E/A: 1.3 MV V2 max: 110.0 cm/sec Ao V2 max: 161.5 cm/sec MV max P.9 mmHg MV dec slope: 615.2 cm/sec2 Ao max P.4 mmHg MV V2 mean: 61.9 cm/sec Ao V2 mean: 115.7 cm/sec MV mean P.8 mmHg Ao mean P.0 mmHg MV V2 VTI: 41.8 cm Ao V2 VTI: 38.7 cm AV (velocity ratio): 0.78 LV V1 max: 123.5 cm/sec PA V2 max: 102.3 cm/sec LV V1 max P.1 mmHg PA V2 mean: 71.1 cm/sec LV V1 mean P.7 mmHg LV V1 mean: 90.8 cm/sec LV V1 VTI: 30.3 cm ECHO/Echo Complete Interpretation Summary The estimated ejection fraction is 50-55 %. Overall normal LV systolic function Mild apical hypokinesia Ordering Physician: Su Jon Referring Physician: Su Jon Performed By: Cadence West RCS
== END | disposition home or self-care (01) ==
LOC: CVS 10:36
PROVIDERS: PCP Family Medicine; Referring Provider Family Medicine; Visit Provider Family Medicine
DX: M79.89 Other specified soft tissue disorders (principal)
CPT/HCPCS: 93306

== ENCOUNTER → 2023-05-31 | Outpatient (CLI) | payer OTHER, SELFPAY ==
[2023-05-31 16:30] LABS: Absolute Lymphocyte Count 1.71 X10^3/uL (0.83-4.51); Absolute Neutrophil Count 5.3 X10^3/uL (2.0-7.7); Basophil# 0.02 X10^3/uL; Basophil% 0.3 % (0-1); Eosinophils% 1.3 % (0-5); Hematocrit 43.1 % (37-47); Hemoglobin 13.8 g/dL (12.0-15.0); Lymphocyte # 1.71 X10^3/ul (0.83-4.51); Lymphocyte % 22.5 % (19-41); Mean Corpuscular Hgb 30.8 pg (27.0-32.0); Mean Corpuscular Volume 96.2 fL (81-99); Mean Platelet Vol. 12.7 fl (6.2-12.0); Monocyte% 5.3 % (0-10); NRBC Flagged by Analyzer 0 % (0-5); Neutrophil # 5.34 X10^3/uL (2.7-7.7); Neutrophil % 70.1 % (47-70); Platelet Count 149 K/mm3 (150-450); RBC Distribution Width CV 12.9 % (11.6-14.6); RBC Distribution Width SD 45.8 fl (35.1-43.9); Red Blood Count 4.48 M/mm3 (4.2-5.4); White Blood Count 7.6 K/mm3 (4.4-11.0)
[2023-05-31 16:42] LABS: Creatinine, Serum 0.87 mg/dL (0.55-1.02); EST Glomerular Filtration Rate 75 mL/min (>60); Est Glom Filt Rate - Afr Amer 91 mL/min (>60)
== END | disposition home or self-care (01) ==
LOC: LAB 16:08
PROVIDERS: PCP Family Medicine; Referring Provider Surgery Trauma Surgery; Visit Provider Surgery Trauma Surgery
DX: R60.0 Localized edema (principal); M79.89 Other specified soft tissue disorders
CPT/HCPCS: 36415; 82565; 85025

== ENCOUNTER → 2023-07-07 | Outpatient (CLI) | payer OTHER, SELFPAY ==
--- OUTSIDE RECORDS SUMMARY | 2023-07-07 09:20 | XMS RPT_ITS | CCD ---
Author Name Unknown Address [address] [place] [address] Organization [facility] Care Team Providers Care Medical Intern Name Role Phone MASTER [place] Unavailable Unavailable Aubrey, Rosy Unavailable Unavailable Aubrey, Rosy Unavailable Unavailable Samreen Wesley Unavailable Unavailable Unknown, Referring Provider Unavailable Unav ailable Aubrey, Rosy S Unavailable Unavailable Unknown, Referring Provider Unavailable Unav ailable Unavailable Unavailable WALLY REICH Attending Unavailable RADHA MCARTHUR Referring Unavailabl e AUBREY, ROSY S Primary Care Unavailable MELINDA MERRITT Attending Unavailable RADHA MCARTHUR Referring Unavailabl e AUBREY, ROSY S Primary Care Unavailable WALLY REICH Attending Unavailable RADHA MCARTHUR Referring Unavailabl e AUBREY, ROSY S Primary Care Unavailable WALLY REICH Attending Unavailable RADHA MCARTHUR Referring Unavailabl e AUBREY, ROSY S Primary Care Unavailable Rosy Burgos MD Primary Care Provider JON IRWIN Attending Unavailable AUBREY, ROSY Attending Unavailable AUBREY, ROSY Primary Care Unavailable SIDRA CARNEY Attending Unavailable AUBREY, ROSY Primary Care Unavailable Allergies Allergy Classification Reported Allergen(s) Allergy Type Date of Onset Reaction(s) Facility Penicillins (antibiotic) (4 sources) Penicillins; Translations: [Penicillins] Drug Allergy PA-Xtshpkvjc-C mala 170 DO Work Phone: (8 sources) Penicillins; Translations: [Penicillins] Allergy to drug (finding) 3 [facility] (3 sources) ERENUMAB-AOOE; Translations: [ERENUMAB-AOOE] Propensity to adverse reactions to drug (disorder) 9 Other, Unknown [facility] (3 sources) Penicillins Propensity to adverse reactions 2 [facility] [employer] [place] Work Phone: Medications Current Medications Medication Drug Class(es) Dates Sig (Normalized) Sig (Original) citalopram 20 mg oral tablet (2 sources) Serotonin Reuptake Inhibitor Start: 11-17-2022 citalopram (CeleXA) 20 MG tablet Elastic Bandages & Supports (Medical Compression Stockings) misc (2 sources) Start: 06-06-2022 Elastic Bandages & Supports (Medical Compression Stockings) misc Compress.Stocking,K nee,Reg,Lrg Active 0 .Route 2 June 06, 2022 1:00am As directed 0 06/06/2022 Active 24 hr ferrous sulfate 142 mg extended release oral tablet (2 sources) Start: 09-21-2022 ferrous sulfate ER 142 mg ER tablet Take 142 mg by mouth. 0 09/21/2022 Active furosemide 20 mg oral tablet (1 source) Loop Diuretic Start: 02-05-2023 End: 02-05-2024 take 1 tablet by mouth once daily furosemide (Lasix) 20 MG tablet Indications: Lymphedema Take 1 tablet (20 mg) by mouth daily. 30 tablet 1 02/05/2023 02/05/2024 Active levonorgestrel 0.894326 mg/hr intrauterine system (2 sources) Progestin, Progestin-containi ng Intrauterine Device levonorgestrel (Liletta) 20.1 MCG/DAY IUD 1 each by IntraUTERine route Once. 0 Active Vit-Fe Fumarate-FA ( VITAMIN PO) (2 sources) Start: 05-10-2022 Vit-Fe Fumarate-FA ( VITAMIN PO) Take by mouth. 0 05/10/2022 Active SUMAtriptan 100 mg oral tablet (13 sources) Serotonin-1b and Serotonin-1d Receptor Agonist Start: 04-17-2018 SUMAtriptan (Imitrex) 100 MG tablet every 12 hours. 0 04/17/2018 Active Completed/Discontinued Medications Medication Drug Class(es) Dates Sig (Normalized) Sig (Original) clomiPRAMINE hydrochloride 75 mg oral capsule (7 sources) Tricyclic Antidepressant Start: 01-12-2021 take 1 capsule by mouth once daily at bedtime clomiPRAMINE HCl - 75 MG Oral Capsule 1 PO QHS Quantity: 30 Refills: 6 Ordered: 10-Nov-2021 Samreen Wesley MD Start : 12-Jan-2021 Active Problems Active Problems Problem Classification Problem Date Documented Da te Episodic/Chronic Anxiety disorders (7 sources) Agoraphobia without history of panic disorder; Translations: [Agoraphobia without mention of panic attacks] Chronic Coagulation and hemorrhagic disorders (8 sources) Platelet count below reference range; Translations: [Thrombocytopenia, unspecified] Chronic Headache, including migraine (2 sources) Headache; Translations: [Headache] Onset: 01-25-2018 Episodic Headache; including migraine (11 sources) Migraine without aura, not refractory ; Translations: [Chronic migraine without aura, without mention of intractable migraine without mention of status migrainosus] Chronic Miscellaneous mental health disorders (9 sources) Chronic insomnia; Translations: [Insomnia, unspecified] Chronic Miscellaneous mental health disorders (9 sources) Adjustment insomnia; Translations: [Transient disorder of initiating or maintaining sleep] Episodic Nausea and vomiting (11 sources) Nausea and vomiting; Translations: [Nausea with vomiting] Episodic Other diseases of veins and lymphatics (2 sources) Lymphedema; Translations: [Lymphedema, not elsewhere classified] 12-04-2022 Chronic Other diseases of veins and lymphatics (2 sources) Lymphedema, not elsewhere classified; Translations: [Lymphedema, not elsewhere classified] Onset: 12-04-2022 Chronic Other nervous system disorders (11 sources) H/O: migraine; Translations: [Personal history of other disorders of nervous system and sense organs] Episodic Residual codes; unclassified (9 sources) Insomnia; Translations: [Insomnia, unspecified] Episodic Thyroid disorders (11 sources) Acquired hypothyroidism; Translations: [Unspecified acquired hypothyroidism] Chronic Past or Other Problems Problem Classification Problem Date Documented Da te Episodic/Chronic Other complications of (2 sources) Supervision of high risk , unspecified, second trimester; Translations: [Supervision of high risk , unspecified, second trimester] Onset: 04-27-2022 Episodic Other upper respiratory disease (2 sources) Nasal congestion; Translations: [Nasal congestion] Onset: 08-03-2022 Episodic Other upper respiratory infections (2 sources) Acute frontal sinusitis, unspecified; Translations: [Acute frontal sinusitis, unspecified] Onset: 04-27-2022 Episodic NEGATED: Highlighted row has not occurred!Residual codes; unclassified (8 sources) Disease Episodic NEGATED: Highlighted row has been ruled out!Unclassified (2 sources) No known active problems 08-03-2022 Results Test Name Value Interpretation Reference Range Facil ity Vital Signs Date Time Vital Sign Value Performing Clinician Andrew salvador 12-04-2022 11:01-0400 Body height 170.2 cm Rosy Burgos MD Work Phone: [facility] [place] 12-04-2022 11:01-0400 Body mass index (BMI) [Ratio] 38.39 kg/m2 Rosy Burgos MD Work Phone: [facility] [place] 12-04-2022 11:01-0400 Body weight 111.18 kg Rosy Burgos MD Work Phone: [facility] [place] 12-04-2022 11:01-0400 Diastolic blood pressure 85 mm[Hg] Rosy Burgos MD Work Phone: [facility] [place] 12-04-2022 11:01-0400 Heart rate 71 /min Rosy Burgos MD Work Phone: [facility] [place] 12-04-2022 11:01-0400 Respiratory rate 14 /min Rosy Burgos MD Work Phone: [facility] [place] 12-04-2022 11:01-0400 SaO2% (BldA) [Mass fraction] 99 % Rosy Burgos MD Work Phone: [facility] [place] 12-04-2022 11:01-0400 Systolic blood pressure 130 mm[Hg] Rosy Burgos MD Work Phone: [facility] [place] 12-20-2020 17:43-0400 Body mass index (BMI) [Ratio] 38.22 kg/m2 Referring Provider Unknown NP-Vzlzeipvp-Razrf a 170 DO Work Phone: 12-20-2020 17:43-0400 Body surface area Derived from formula 2.2 m2 Referring Provider Unknown OC-Tvtlzmgvn-Hsfpv a 170 DO Work Phone: 12-20-2020 17:43-0400 Body weight 110.68 kg Referring Provider Unknown UM-Exlyunfqi-Snohs a 170 DO Work Phone: 12-20-2020 17:00-0400 Body height 170.18 cm Referring Provider Unknown UC-Nwpfwjghc-Zayof a 170 DO Work Phone: 12-20-2020 17:00-0400 Body temperature 96.7 [degF] Referring Provider Unknown TT-Btxelkewo-Wtnzs a 170 DO Work Phone: 12-20-2020 17:00-0400 Diastolic blood pressure 82 mm[Hg] Referring Provider Unknown TW-Ifqubvkxd-Vxwpj a 170 DO Work Phone: 12-20-2020 17:00-0400 Respiratory rate 16 /min Referring Provider Unknown PL-Wkbvugjhe-Tnysp a 170 DO Work Phone: 12-20-2020 17:00-0400 Systolic blood pressure 126 mm[Hg] Referring Provider Unknown KY-Gadvgfxtq-Clvyb a 170 DO Work Phone: Encounters Encounter Date Encounter Type Care Provider Facility Start: 02-05-2023 Orders Only Rosy Francois on Work Phone: [facility] Family Medicine Procedures Date Procedure Procedure Detail Performing Clinician Start: 02-07-2022 Mammography Rosy farias MD Work Phone: Start: 10-26-2020 Mammography Dora Sales RN Appendectomy Samreen Wesley Plan of Treatment Date Care Activity Detail Author Start: 08-14-2032 DTaP/Tdap/Td Vaccine s (2 - Td or Tdap) DTaP/Tdap/Td Vaccines (2 - Td or Tdap) [facility] Start: 2028 Zoster Vaccines (1 of 2) Zoster Vacc víctor (1 of 2) [facility] Start: 02-07-2023 Screening for malign ant neoplasm of breast Mammogram [facility] Start: 01-26-2023 Influenza vaccination Influenza Vacc ine (#1) [facility] Start: 12-04-2022 End: 12-05-2023 CBC panel - Blood by Automated count CBC Lab Routine Lymphedema Expected: 12/04/2022 (Approximate), Expires: 12/05/2023 [facility] Payers Date Payer Category Payer Unknown 2020 Unknown [id number] 1980 Unknown [id number] [id number] 1980 Unknown [id number] [id number]. [id number] 1980 Unknown [id number] 2.16. [id number] 1980 Unknown [id number] 2.16. [id number] Social History Date Type Detail Facility Assertion Tobacco smoking consumption unknown (finding) VL-Syxqawiad-Grshrx 170 DO Work Phone: Start: 08-03-2022 End: 02-02-2023 No alcohol use No alcohol use QM-Rwddagqwh-Otaezn 170 DO Work Phone: Tobacco smoking stat [facility] Never smoked tobacco [facility] Start: 08-03-2022 End: 02-02-2023 Alcohol intake Ex-drinker (finding) [facility] Start: 08-03-2022 End: 02-02-2023 Tobacco use panel [facility] Start: 1980 Sex Assigned At Female S [facility] Start: 04-27-2022 Gender identity Identifies as female gender (finding) [facility] Functional Status Date Assessment Result Facility NEGATED: Highlighted row Functional performance Functional status health issues are not documented Disease YN-Whbepvlmy-Yoggqd 170 DO Work Phone: Mental Status Date Assessment Result Facility NEGATED: Highlighted row Cognitive function [Interpretation] Cognitive status health issues are not documented Disease GR-Kybkqhvab-Fbrbql 170 DO Work Phone: Clinical Notes 10-27-2019 to 12-04-2022 Rosy Burgos MD - 12/04/2022 11:20 AM EDTTelephone Encounter - Dora Singh RN - 12/01/2022 9:08 AM EDTTelephone Encounter - Dora Bojorquez RN - 12/01/2022 9:08 AM EDT Note Date & Type Note Facility 12-04-2022 History of Present illness Narrative Subjective Patient ID: Marivel Mancera is a 42 y.o. female who presents for Bilateral lower leg swelling (Advised to be seen by PCP from OBGYN - had baby on 10/07/2022, swelling worsening since - has tried compression stockings sometimes not able to get them on at all). 34 weeks gestation, BP was elevated. Lots of stress in the home. Parents have been ill. Induced and had IV fluid for 24 hours. The legs have been swollen. Had a vaginal delivery. Did 3 days of lasix. Urinated a lot. Walking helps. Elevates the legs when seated. Watches the salt in the diet Review of Systems Constitutional: Positive for activity change. Negative for unexpected weight change. Respiratory: Negative for chest tightness and shortness of breath. Cardiovascular: Positive for leg swelling. Objective Physical Exam Vitals and nursing note reviewed. Constitutional: General: She is not in acute distress. Appearance: She is obese. She is not ill-appearing or toxic-appearing. Eyes: Conjunctiva/sclera: Conjunctivae normal. Pupils: Pupils are equal, round, and reactive to light. Cardiovascular: Rate and Rhythm: Normal rate and regular rhythm. Heart sounds: Normal heart sounds. No murmur heard. Pulmonary: Effort: Pulmonary effort is normal. No respiratory distress. Breath sounds: Normal breath sounds. Musculoskeletal: Comments: The legs look big, but it is really not edema. There is no pitting when I push on the skin. It just looks like obese legs. Skin: Coloration: Skin is not jaundiced. Neurological: Mental Status: She is alert. Assessment/Plan Problem List Items Addressed This Visit None Visit Diagnoses Lymphedema - Primary Acute, uncontrolled This does not look like something that would respond to diuretic therapy Check the labs Hold off on medicine Relevant Orders Comprehensive metabolic panel CBC TSH documented in this encounter [facility] 12-01-2022 Telephone encounter Note S: The patient is calling the [facility] About lower extremity edema B: She is 7 weeks post A: This started the day she came home from the hospital and she has had 5 appointment with OB and they did blood work; she was told to elevate her legs and drink > 100 ounces of water daily. Elevating will help but the edema always returns when she has her legs in the dependent position. No chest pain or dyspnea noted. No discoloration. No redness, open areas or suspicion for an infection. She was measured for compression stockings while but her issue is getting them on with the swelling. This would indicate the first time the swelling started was not post as she first indicated. R: Appointment for Sunday (she will only see Dr. Burgos). Insurance verified. She should continue to hydrate well, elevate her feet and attempt to use the compression stockings; they need to be put on when her legs are the smallest, preferably before she gets out of bed in the morning. Reviewed symptoms that would require an immediate call back. Reason for Disposition Patient wants to be seen Protocols used: Leg Swelling and Hyako-BIZJK-IV [facility] 12-01-2022 Miscellaneous Notes S: The patient is calling the [facility] About lower extremity edema B: She is 7 weeks post A: This started the day she came home from the hospital and she has had 5 appointment with OB and they did blood work; she was told to elevate her legs and drink > 100 ounces of water daily. Elevating will help but the edema always returns when she has her legs in the dependent position. No chest pain or dyspnea noted. No discoloration. No redness, open areas or suspicion for an infection. She was measured for compression stockings while but her issue is getting them on with the swelling. This would indicate the first time the swelling started was not post as she first indicated. R: Appointment for Sunday (she will only see Dr. Burgos). Insurance verified. She should continue to hydrate well, elevate her feet and attempt to use the compression stockings; they need to be put on when her legs are the smallest, preferably before she gets out of bed in the morning. Reviewed symptoms that would require an immediate call back. Reason for Disposition Patient wants to be seen Protocols used: Leg Swelling and Aeahq-QGYTW-QB documented in this encounter [facility] 12-15-2021 Chief complaint Narrative - Reported Neurologic Evaluation.An interactive audio and video telecommunication system which permits real time communications between the patient (at the originating site) and provider (at the distant site) was utilized to provide this telehealth service.Verbal consent was requested and obtained from MARIVEL MANCERA on this date, 12/15/2021 02:30 PM , for a telehealth visit.Follow up migraine management ZY-Fuvxwgosn-Rzhhby 170 DO Work Phone: 12-01-2021 History of Present illness Narrative Mom had a stroke, a brain aneurysm and tumor. No paralysis but speech and memory are impaired. Cannot be left alone. Marivel staying with her mom right now. Is in right now.Has been staying at [facility] for the past 2 weeks.Week before, she fractured her heal.Has had no migraines or headaches in past 2 weeks.Started Qulipta 60mg and Topiramate ER 100mg. No side effect from either of these. Denies constipation.Only thing she noticed when she first started it was tingling in hands and feet first couple days and then resolved.[facility]ceiving [facility].Continues clomipramine.Has not been sleeping. Considering all that is going on, mood/anxiety is no worse than it had been.Migraine occurs starting at base of neck radiates to occipital and over top of head. Left Greater than right side.Treats early with SumatriptanAssociated nausea sometimes, light and noise sensitivity. Zofran and Phenergan helpful for the most part.Triggers are none in particular. FK-Ceqihlxkd-Lvkkic 170 DO Work Phone: 11-10-2021 Chief complaint Narrative - Reported Neurologic Evaluation.An interactive audio and video telecommunication system which permits real time communications between the patient (at the originating site) and provider (at the distant site) was utilized to provide this telehealth service.Verbal consent was requested and obtained from MARIVEL MANCERA on this date, 11/10/2021 01:30 PM , for a telehealth visit.Follow up migraine managementyearly [facility] 170 DO Work Phone: 11-10-2021 History of Present illness Narrative Uncontrolled migraines currently. Family urging her to seek better control.STates 1 severe and debilitating migraine lasting 2-3 days per week on Zonisamide 300mg at HS.Naratritpan and sumatriptan decrease pain but do not completely relieve migraine. Then when headache gone has lingering cognitive fog. Needs to redose sumatriptan has 2 to 4 day headacheHas been on Topamax and Trokendi. Trokendi not helpful. Topamax suboptimal effectivenessHas been on Aimovig- constipation and Emgality and benefit not work copay for her. Never Ajovy. No current constipationMigraine occurs starting at base of neck radiates to occipital and over top of head. Left Greater than right side.Treats early with SumatriptanAssociated nausea sometimes, light and noise sensitivity. Zofran and Phenergan helpful for the most part.Triggers are none in particular.Has migraine so often that she feels it is her normal. parents have been spending time with her and feel she has them too often.Unsure if Zonisamide 300mg has ever been very effective. Interested in topiramate again.Would like an option that it is not 3 pills all at once.Clomipramine has not been very helpful for the agoraphobia. Still stays around the house. may have helped a little. Titrated to 75mg.Sleeps well.Endorses a little bit of anxiety. I have always kind of been anxious. I don't feel it is bad Denies depressionHad tried to get botox in past was not covered by insurance [facility] 170 DO Work Phone: 04-20-2021 Note HNO ID: [id number] Author: Renata Carmona APRN.INFANTRY OPERATIONS SPECIALIST Service: ? Author Type: Nurse Practitioner Type: Progress Notes Filed: 04/20/2021 11:01 AM Note Text: CC: Patient presents with: Cough: with MITCH ear pain, runny nose AND back pain x 6 days HPI: Marivel Mancera is a 41 year old female who presents to the office with complaint of respiratory symptoms, chest congestion, sinus symptoms and fever for a week. Symptoms are worsening Associated symptoms includes nasal congestion, facial pain/pressure, headache, fever and cough. Denies swollen glands, ear pain, ear pressure , dyspnea, nausea, vomiting and diarrhea. Treatments tried include OTC cold medicine with minor relief of symptoms. Sick contacts: unknown. History of asthma, frequent episodes of bronchitis, chronic bronchitis, bronchiectasis or COPD: No Smoker: No Seasonal/environmental allergies: No The ROS is otherwise negative. The patient's pmh, medications, allergies, and past visits are reviewed. PHYSICAL EXAM: BP 132/72 Pulse 97 Temp (!) 38 ?C (100.4 ?F) (Left Tympanic) Resp 16 Wt 108.2 kg (238 lb 9.6 oz) LMP 07/26/2015 SpO2 98% General appearance: alert, cooperative, pleasant, in no acute distress Head: Normocephalic Eyes: EOM's intact, conjunctiva pink and moist, no icterus, sclera white, non-injected Oropharynx:moist without lesions, No erythema, exudates or tonsillar hypertrophy. Neck:supple and no adenopathy Heart: Negative. RRR without obvious murmur, gallop, or rubs. No ectopy. Lungs: clear to auscultation, without rales or wheeze, good air exchange No past medical history on file. No past surgical history on file. ALLERGIES Penicillins MEDICATIONS zonisamide (ZONEGRAN) 100 mg capsule Take 3 capsules by mouth daily at bedtime. SUMAtriptan (IMITREX) 100 mg tablet Take 100 mg by mouth as needed for migraine headache (see administration instructions). doxycycline monohydrate 100 mg tablet Take 1 tablet by mouth twice daily for 5 days. Benzonatate 200 mg capsule Take 1 capsule by mouth three times daily as needed. Etonogestrel-Ethinyl Estradiol 0.12-0.015 mg/24 hr vaginal ring Use vaginally. fluticasone (FLONASE) 50 mcg/actuation nasal spray Use 2 Sprays in each nostril once daily. Rinse mouth after use. benzonatate (TESSALON PERLE) 100 mg capsule Take 2 capsules by mouth three times daily as needed. No family history on file. Social History Tobacco Use - Smoking status: Never Smoker - Smokeless tobacco: Never Used Substance Use Topics - Alcohol use: Not on file - Drug use: Not on file Prescription instructions reviewed with patient as applicable. Potential red flag symptoms discussed with the patient. Reviewed appropriate action plan to take if red flag symptoms occur. Patient agreeable to treatment plan. Renata Carmona APRN.[facility] 10-27-2019 History of Present illness Narrative Yearly appt last October 2019 refusal to see EATING DISORDER PSYCHOLOGIST in interim. could only make a 5 PM appointment despite notification September.Has been treating early with 1/2-1 tab of Sumatriptan t as soon as feels pressure at base of skull. once a week and 3 to 4 days around menses Within 15 minutes begins to abort. Will still have lingering pain at occipital and pressure behind eyes for several hours. Will sometimes repeat if lingers over an hour. has one bad headache around menses.Has Treximet but doesn't work as fast or as well. Usually needs to repeat.stopped emgality due to cost no change in headachesContinues Trokendi.150XR has parasthesias in face. Is becoming agoraphobic.Feels it is causing weight gain . 15 lbs in 1 yearMonitored steps past 2 weeks. 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 YS-Ianuqtyml-Zqysng 170 DO Work Phone: documented in this encounter [facility]* Diagnosis Lymphedema- Primary Other noninfectious lymphedema documented in this encounter [facility] Summary Purpose Family History Sibling Name Dates Details Family history of glaucoma(V 19.11, Z83.511) Status:Active Grandmother Name Dates Details Family history of stroke(V17 .1, Z82.3) Status:Active Father Name Dates Details Family history of malignant neoplasm of prostate(V16.42, Z80.42) Status:Active Unknown Family Member Name Dates Details Family history of malignant neoplasm of prostate: Father(V16.42, Z80.42) Status:Active Family history of glaucoma: Sibling(V19.11, Z83.511) Status:Active Family history of stroke: Gr andmother(V17.1, Z82.3) Status:Active Unknown Family Member Name Dates Details Family history of glaucoma: Sibling(V19.11, Z83.511) Status:Active Family history of stroke: Gr andmother(V17.1, Z82.3) Status:Active Family history of malignant neoplasm of prostate: Father(V16.42, Z80.42) Status:Active Unknown Family Member Name Dates Details Family history of malignant neoplasm of prostate: Father(V16.42, Z80.42) Status:Active Family history of glaucoma: Sibling(V19.11, Z83.511) Status:Active Family history of stroke: Gr andmother(V17.1, Z82.3) Status:Active Unknown Family Member Name Dates Details Family history of stroke: Gr andmother(V17.1, Z82.3) Status:Active Family history of glaucoma: Sibling(V19.11, Z83.511) Status:Active Family history of malignant neoplasm of prostate: Father(V16.42, Z80.42) Status:Active Unknown Family Member Name Dates Details Family history of malignant neoplasm of prostate: Father(V16.42, Z80.42) Status:Active Family history of glaucoma: Sibling(V19.11, Z83.511) Status:Active Family history of stroke: Gr andmother(V17.1, Z82.3) Status:Active Unknown Family Member Name Dates Details Family history of malignant neoplasm of prostate: Father(V16.42, Z80.42) Status:Active Family history of glaucoma: Sibling(V19.11, Z83.511) Status:Active Family history of stroke: Gr andmother(V17.1, Z82.3) Status:Active Unknown Family Member Name Dates Details Family history of malignant neoplasm of prostate: Father(V16.42, Z80.42) Status:Active Family history of glaucoma: Sibling(V19.11, Z83.511) Status:Active Family history of stroke: Gr andmother(V17.1, Z82.3) Status:Active Unknown Family Member Name Dates Details Family history of malignant neoplasm of prostate: Father(V16.42, Z80.42) Status:Active Family history of glaucoma: Sibling(V19.11, Z83.511) Status:Active Family history of stroke: Gr andmother(V17.1, Z82.3) Status:Active Unknown Family Member Name Dates Details Family history of malignant neoplasm of prostate: Father(V16.42, Z80.42) Status:Active Family history of glaucoma: Sibling(V19.11, Z83.511) Status:Active Family history of stroke: Gr andmother(V17.1, Z82.3) Status:Active Advance Directives No Advanced Directives Records FoundNo Advanced Directives Records FoundNo Advanced Directives Records FoundNo Advanced Directives Records FoundNo Advanced Directives Records Found Additional Source Comments INFORMATION SOURCE (unrecogn ized section and content) DATE CREATED AUTHOR AUTHOR'S ORGANIZ ATION 11/10/2019 [facility] DATE CREATED AUTHOR AUTHOR'S ORGANIZ ATION 06/19/2021 [facility] DATE CREATED AUTHOR AUTHOR'S ORGANIZ ATION 09/08/2022 [facility] DATE CREATED AUTHOR AUTHOR'S ORGANIZ ATION 12/06/2022 [facility] Reason for Visit (unrecogniz ed section and content) Reason Comments Bilateral lower leg swelling Advised to be seen by PCP from OBGYN - had baby on 10/07/2022, swelling worsening since - has tried compression stockings sometimes not able to get them on at all Care Teams (unrecognized sec tion and content) Medical Intern Relationship Specialty Start Date End Date Rosy Burgos MD [address] [place] [address], [address] [place], [place] [id number] PCP - General 02/24/16 Medical Intern Relationship Specialty Start Date End Date Rosy Burgos MD [address] [place] [address], [address] [place], [place] [id number] PCP - General 02/24/16 FOR RECORDS PERTAINING TO PATIENTS WHO ARE OR HAVE BEEN ENROLLED IN A CHEMICAL DEPENDENCY/SUBSTANCEABUSE PROGRAM, SOME INFORMATION MAY BE OMITTED. This clinical summary was aggregated from multiple sources. Caution should be exercised in using it in the provision of clinical care. This summary normalizes information from multiple sources, and as a consequence, information in this document may materially change the coding, format and clinical context of patient data. In addition, data may be omitted in some cases. CLINICAL DECISIONS SHOULD BE BASED ON THE PRIMARY CLINICAL RECORDS. [facility] [employer] [facility]. provides no warranty or guarantee of the accuracy or completeness of information in this document.
[2023-07-07 10:27] LABS: Anion Gap 4 (5-15); BUN 14 mg/dL (7-18); BUN/Creat Ratio 15.2 RATIO (10-20); Calcium,Total 9.3 mg/dL (8.5-10.1); Chloride 109 mmol/L (98-107); Creatinine, Serum 0.92 mg/dL (0.55-1.02); EST Glomerular Filtration Rate 70 mL/min (>60); Est Glom Filt Rate - Afr Amer 85 mL/min (>60); Glucose 108 mg/dL (74-106); Sodium Level 138 mmol/L (136-145)
== END | disposition home or self-care (01) ==
LOC: LAB 09:17
PROVIDERS: PCP Family Medicine; Referring Provider Family Medicine; Visit Provider Family Medicine
DX: M79.89 Other specified soft tissue disorders (principal)
CPT/HCPCS: 36415; 80048

== ENCOUNTER 2023-07-13 11:48 | Outpatient (RCR) | payer OTHER, SELFPAY ==
--- NOTE | 2023-07-13 13:33 | HP.OTEVAL_ITS ---
Patient's Visit Information Visit Information Visit Information: MARIVEL HURTADO is a 43 year old F, referred to Occupational Therapy by Su Jon DO, with a diagnosis of lymphedema. Date of Evaluation: 07/13/23 Occupational Therapist: FABIANO Rowland/Nando, CHT Subjective Subjective: This 43 year old female was seen for OT eval with dx of Lymphedema. Pt states she did start having swelling in BLE while she was . Pt states she started jazmín compression socks at that time and has continued to wear them. no sig. change in swelling depending on sleeping- pt states she was having difficulty with stairs so she is sleeping down stairs to be close to her son. pts compression socks are 15-20mmHg. pt states she would like to know what she can do to assist with her circulation. Lymphedema (Circumferential Measure) Mid-foot: right 23cm left 23.5cm Ankle: right 29 left 22cm Lower calf: right 35.5cm left 42 Largest calf: right 53 left 52cm Below knee: right 55cm left 53cm Above knee: right 73cm left 67cm Lower Limb Functional Index Lower Extremity Functional Score: 53 Goals Goal: Patient will demonstrate a 20% reduction in edema by discharge: Yes Goal: Patient will demonstrate adequate knowledge of self-massage by the end of the second week.: Yes Goal: Patient will demonstrate adequate knowledge of skin care and precautions by the end of the first week.: Yes Goal: Patient will demonstrate adequate knowledge of therapeutic exercises by discharge.: Yes Goal: Patient will select an appropriate compression garment and demonstrate adequate knowledge of correct donning technique, care and wearing schedule by discharge.: Yes Goal: Patient will voice understanding of need to replace compression garment every four to six months by discharge.: Yes Rehabilitation General Assessment: pt demo with mild edema in bilateral LE that increases difficulty with ambulation and climbing up/down stairs. pt would benefit from skilled OT services 2-4 visits to ensure pts understanding of dx and use of lymph stimulation ex, self manual lymph massage as well as compression socks 20- 30mmHg. pt was given information and demo understanding and agree to POC. Rehabilitation Potential: Good Anticipated Interventions Anticipated Interventions: Education re Diagnosis, Education re Life-long lymphedema Management, Education re Skin Care and Precautions, Education re Self Massage Techniques, Education re Correct Donning Tech,Care&Wearing Sched Comp Garments and Home Program Visit Plan TEXT: Thank you for the opportunity to evaluate your patient. For Medicare and Medicare HMO plans, please review the plan of care and approve it. It will need to be FAXED BACK to us at [phone] for Medicare purposes. Please let me know if there are questions or concerns regarding this plan of care. Physician Signature:___ Date:
--- NOTE | 2023-12-21 08:46 | HP.OT.NRP ---
Patient Information Patient Information: MARIVEL HURTADO was seen in my office for initial evaluation on 07/13/23. The following Plan of Care was established for this patient: Anticipated Interventions Anticipated Interventions: Education re Diagnosis, Education re Life-long lymphedema Management, Education re Skin Care and Precautions, Education re Self Massage Techniques, Education re Correct Donning Tech,Care&Wearing Sched Comp Garments and Home Program Last Seen Last Seen: This patient was last seen in our office 07/13/23. Pertinent comments regarding their Occupational therapy will appear below: Pt seen for OT eval only- no further apts scheduled at this time. Due to time lapse in services pt is d/c. At this point I will be discontinuing this patient from occupational therapy. I would be happy to see this patient again in the future if found appropriate by the physician. Thank you! Clarita Pop, OTR/L, CHT
== END 2023-07-13 19:00 | disposition home or self-care (01) ==
LOC: OT 11:48
PROVIDERS: PCP Family Medicine; Referring Provider Family Medicine; Visit Provider Family Medicine
DX: M79.89 Other specified soft tissue disorders (principal)
CPT/HCPCS: 97110; 97166; 97530

== ENCOUNTER → 2024-05-09 | Outpatient (CLI) | payer OTHER, SELFPAY ==
--- NOTE | 2024-05-09 13:00 | VDLE_ITS ---
Reason For Study: Venous insufficiency RIGHT LEFT CFV is compressible, spontaneous, phasic, CFV is compressible, spontaneous, phasic, competent and demonstrates normal competent, and demonstrates normal augmentation. augmentation. FV is compressible, spontaneous, phasic, FV is compressible, spontaneous, phasic, competent and demonstrates normal competent and demonstrates normal augmentation. augmentation. POP V is compressible, spontaneous, phasic, POP V is compressible, spontaneous, phasic, competent and demonstrates normal competent and demonstrates normal augmentation. augmentation. T/P Trunk is compressible. T/P Trunk is compressible. PTV is compressible. PTV is compressible. RT PerV is compressible. LT PerV is compressible. SFJ is INCOMPETENT and measures 1.1 cm. SFJ is competent and measures 0.82 cm. GSV proximal thigh measures 0.54 x 0.57 cm. GSV proximal thigh measures 0.56 x 0.56 cm. GSV above knee is INCOMPETENT for greater GSV at knee measures 0.39 x 0.39 cm. than 0.5 seconds. GSV is competent throughout. GSV at knee measures 0.25 x 0.24 cm. SSV mid calf is competent and measures 0.18 x GSV below knee is competent. 0.20 cm. ASV mid thigh is INCOMPETENT for greater than 0.5 seconds and measures 0.63 x 0.63 cm. ASV from junction with CFV is INCOMPETENT for greater than 0.5 seconds and measures 0.68 x 0.66 cm. INCOMPETENT instructional consultant noted 10 cm aove medical malleolus. SSV mid calf is competent and measures 0.26 x 0.27 cm. Procedure This is a venous duplex using B-mode, color flow and spectral Doppler. Exam performed in department. Patient was scanned in reverse Trendelenburg position during reflux assessment. VL/Venous Duplex US - Tristin Extrem Interpretation Summary Bilateral no DVT or SVT. Right thigh GSV and ASV reflux. Ordering Physician: Rj Pink Referring Physician: Cuca Toledo Performed By: Lili Brown RVT
== END | disposition home or self-care (01) ==
LOC: CVS 12:52
PROVIDERS: PCP Family Medicine; Referring Provider Surgery Vascular Surgery; Visit Provider Surgery Vascular Surgery
DX: I87.2 Venous insufficiency (chronic) (peripheral) (principal); I89.0 Lymphedema, not elsewhere classified
CPT/HCPCS: 93970

== ENCOUNTER → 2024-08-18 | Outpatient (CLI) | payer OTHER, SELFPAY ==
--- NOTE | 2024-08-18 11:01 | VDLE_ITS ---
Reason For Study Reason For Study: S/P Rt GSV Chemical Ablation RIGHT LEFT CFV is compressible, spontaneous, phasic, competent CFV is compressible, spontaneous, phasic, competent, and demonstrates normal augmentation. and demonstrates normal augmentation. FV is compressible, spontaneous, phasic, competent and demonstrates normal augmentation. POP V is compressible, spontaneous, phasic, competent and demonstrates normal augmentation. T/P Trunk is compressible. PTV is compressible. RT PerV is compressible. GSV is NONCOMPRESSIBLE with intraluminal echoes approximately 2.55cm distal of SFJ to dist thigh. GSV knee to ankle is compressible. Procedure This is a venous duplex using B-mode, color flow and spectral Doppler. Exam performed in department. The exam was diagnostic. VL/Venous Duplex US, Unilateral Interpretation Summary Right successful ablation and no DVT. Ordering Physician: Rj Pink Referring Physician: Cuca Toledo Performed By: Joey Pool RVT
== END | disposition home or self-care (01) ==
PROVIDERS: PCP Family Medicine; Referring Provider Surgery Vascular Surgery; Visit Provider Surgery Vascular Surgery
DX: I83.891 Varicose veins of right lower extremity with other complications (principal); I87.2 Venous insufficiency (chronic) (peripheral); I89.0 Lymphedema, not elsewhere classified
CPT/HCPCS: 93971

== ENCOUNTER 2024-10-21 12:00 | Outpatient (RCR) | payer OTHER, SELFPAY ==
--- NOTE | 2024-10-06 18:48 | HP.OTEVAL_ITS ---
Patient's Visit Information Visit Information Visit Information: MARIVEL HURTADO is a 44 year old F, referred to Occupational Therapy by Dr. Tamiko Pedro MD, with a diagnosis of lymphedema BLE. Date of Evaluation: 10/06/24 Occupational Therapist: Clarita Pop, FABIANO/Nando, CHT Subjective Subjective: This 44 year old was seen for OT eval with dx of BLE lymphedema. Pt has had symptoms since her son's 2 years ago. Pt has been trying to mtg. er LE lymphedema with exercise, elevation and compression garments (leggings or thigh high). Pt recently underwent vein sx in hopes to alleviate LE limb pain. pt states there has been no change in her leg pain or swelling. Pt is frustrated as she feels she has not been able to get good dx on her symptoms of bilateral leg pain and swelling. Pt also feels elevation and compression garments do not feel like they help. pt would like to know what more she can do to decrease her leg pain and swelling. Pain bilateral LE: Current Pain Intensity: 4 Lymphedema (Circumferential Measure) Mid-foot: right 22cm left 22cm Ankle: right 26cm left 26cm Lower calf: right 35cm left 34cm Largest calf: right 50cm left 50cm Below knee: right 46cm left 45cm Above knee: right 59cm left 58cm Lower Exremity Comments: bilateral LE feels soft noted nodules throughout bilateral LE. This therapist questioning lipedema vs lymphedema but dx treatment is same approach compression garments, elevation, compression pumps. would like pt to see who specializes in lymphedema/lipedema. Lower Limb Functional Index Lower Extremity Functional Score: 35 Goals Goal: Patient will demonstrate adequate knowledge of self-bandaging by the end of the first week.: Yes Goal: Patient will demonstrate adequate knowledge of self-massage by the end of the second week.: Yes Goal: Patient will demonstrate adequate knowledge of skin care and precautions by the end of the first week.: Yes Goal: Patient will demonstrate adequate knowledge of therapeutic exercises by discharge.: Yes Goal: Patient will select an appropriate compression garment and demonstrate adequate knowledge of correct donning technique, care and wearing schedule by discharge.: Yes Goal: Patient will voice understanding of need to replace compression garment every four to six months by discharge.: Yes Rehabilitation General Assessment: pt demo with increase LE edema for 2 years since her son's . Pt states both legs she has suffered LE pain swelling and "fat legs" pt also states she has difficulty sleeping due to painful legs. pt demo with soft palpable tissue and nodules similar to symptoms of lipedema vs Lymphedema. pt demo need flexitouch compression pump to assist in her mtg. of LE symptoms of edema, pain and swelling. Pt has new compression garments- therapist will reach out to see if we can get compression pump for home mtg. pt agrees to POC. Rehabilitation Potential: Good Anticipated Interventions Anticipated Interventions: Education re assistive Equipment, Education re Diagnosis, Education re Life-long lymphedema Management, Education re Self- Bandaging Techniques, Education re Skin Care and Precautions, Education re Self Massage Techniques, Education re Correct Donning Tech,Care&Wearing Sched Comp Garments and Home Program Other Interventions: home Vaso pneumatic pump unit to support circulation Visit Plan TEXT: Thank you for the opportunity to evaluate your patient. For Medicare and Medicare HMO plans, please review the plan of care and approve it. It will need to be FAXED BACK to us at [phone] for Medicare purposes. Please let me know if there are questions or concerns regarding this plan of care. Physician Signature: Date:___
--- NOTE | 2024-10-21 12:17 | OTREVAL_ITS ---
Re-Evaluation Intro: Dr. Tamiko Pedro MD, It has been my pleasure to treat MARIVEL HURTADO over the last 2 visits for lymphedema BLE. Please see the progress note below for an update on the occupational therapy plan of care! Subjective Subjective: pt arrives to session: pt demo difficult with conservative mtg of lymphedema dx she received 2 years ago. pt has used compression socks for last 2 years as well as- perform self manual lymph massage and also has tried elevation without success. states she did have trial of compression pump to assist with her with mtg. of LE lymphedema. This did demo a reduction in her edema. pt states compression socks and elevation have not helped over the past 2 years. pt states the restless leg mediation did not help with her leg pain. pt frustrated on where to go for relief of her symptoms. Objective Objective/Function: Mid-foot: right 23cm inital 22cm left 23cm inital 22cm Ankle: right 26cm left 26cm Lower calf: right 35cm left 34cm Largest calf: right 50cm left 50cm Below knee: right 49cm increased from 46cm [id number] increase 45cm Above knee: right 59cm left 58cm pt continues to have increase in LE edema despite pts attempts to elevate, perform exercise to simulate circulation, use of compression socks 20-30mmHg. pt continues to have edema and painful legs. pt would benefit from vaso pneumatic pump to assist pt in life long mtg of lymphedema. pt increase risk of abdominal swelling as she feels better with thigh high and compression leggings that cover her abdominal wall. Plan Plan Visits in this POC: 3-6 visits Plan: will send info to get compression pump to assist pt in mtg. of life long mtg of her lymphedema. Goals Goals Goal: Patient will demonstrate adequate knowledge of self-bandaging by the end of the first week.: Yes Goal: Patient will demonstrate adequate knowledge of self-massage by the end of the second week.: Yes Goal: Patient will demonstrate adequate knowledge of skin care and precautions by the end of the first week.: Yes Goal: Patient will demonstrate adequate knowledge of therapeutic exercises by discharge.: Yes Goal: Patient will select an appropriate compression garment and demonstrate adequate knowledge of correct donning technique, care and wearing schedule by discharge.: Yes Goal: Patient will voice understanding of need to replace compression garment every four to six months by discharge.: Yes Patient Goals: Learn how to Manage Lymphedema and Learn how to Apply Compression Stockings Anticipated Interventions Anticipated Interventions Anticipated Interventions: Education re assistive Equipment, Education re Diagnosis, Education re Life-long lymphedema Management, Education re Self- Bandaging Techniques, Education re Skin Care and Precautions, Education re Self Massage Techniques, Education re Correct Donning Tech,Care&Wearing Sched Comp Garments and Home Program Other Interventions: home Vaso pneumatic pump unit to support circulation Re-Evaluation Ending Re-evaluation ending: Please do not hesitate to contact me at [phone] by phone or if you have questions or concerns regarding this new plan of care! Sincerely, Clarita Pop OTR/L, CHT
--- NOTE | 2024-10-23 10:36 | HP.OTREVAL ---
Re-Evaluation Intro: Dr. Tamiko Pedro MD, It has been my pleasure to treat MARIVEL HURTADO over the last 2 visits for lymphedema BLE. Please see the progress note below for an update on the occupational therapy plan of care! Subjective Subjective: pt arrives to session: pt demo difficult with conservative mtg of lymphedema dx she received 2 years ago. pt has used compression socks for last 2 years as well as- perform self manual lymph massage and also has tried elevation without success. states she did have trial of compression pump to assist with her with mtg. of LE lymphedema. This did demo a reduction in her edema. however basic pump did cause pain. pt states compression socks and elevation have not helped over the past 2 years. pt states the restless leg mediation did not help with her leg pain. pt frustrated on where to go for relief of her symptoms. Objective Objective/Function: Mid-foot: right 23cm inital 22cm left 23cm inital 22cm Ankle: right 26cm left 26cm Lower calf: right 35cm left 34cm Largest calf: right 50cm left 50cm Below knee: right 49cm increased from 46cm [id number] increase 45cm Above knee: right 59cm left 58cm pt continues to have increase in LE edema despite pts attempts to elevate, perform exercise to simulate circulation, use of compression socks 20-30mmHg. pt continues to have edema and painful legs. pt would benefit from vaso pneumatic pump (Flexitouch) to assist pt in life long mtg of lymphedema. pt maybe at a increase risk of abdominal swelling as she feels better with thigh high and compression leggings that cover her abdomen. Will work with [employer] for appropriate pump for pt that will not cause pain or fluid to accumulate in abdomen. pt demo understanding. Plan Plan Visits in this POC: 3-6 visits Plan: will send info to [employer] to get compression flexitouch pump to assist pt in life long mtg of her lymphedema. Basic pump trial did have fair results but was painful, thus flexitougch is needed to increase compliance with self mtg of lymphedema. Goals Goals Goal: Patient will demonstrate adequate knowledge of self-bandaging by the end of the first week.: Yes Goal: Patient will demonstrate adequate knowledge of self-massage by the end of the second week.: Yes Goal: Patient will demonstrate adequate knowledge of skin care and precautions by the end of the first week.: Yes Goal: Patient will demonstrate adequate knowledge of therapeutic exercises by discharge.: Yes Goal: Patient will select an appropriate compression garment and demonstrate adequate knowledge of correct donning technique, care and wearing schedule by discharge.: Yes Goal: Patient will voice understanding of need to replace compression garment every four to six months by discharge.: Yes Patient Goals: Learn how to Manage Lymphedema and Learn how to Apply Compression Stockings Anticipated Interventions Anticipated Interventions Anticipated Interventions: Education re assistive Equipment, Education re Diagnosis, Education re Life-long lymphedema Management, Education re Self-Bandaging Techniques, Education re Skin Care and Precautions, Education re Self Massage Techniques, Education re Correct Donning Tech,Care&Wearing Sched Comp Garments and Home Program Other Interventions: home Vaso pneumatic pump unit to support circulation Re-Evaluation Ending Re-evaluation ending: Please do not hesitate to contact me at [phone] by phone or if you have questions or concerns regarding this new plan of care! Sincerely, Clarita Pop, OTR/L, CHT
--- NOTE | 2025-01-29 09:51 | HP.OT.NRP ---
Patient Information Patient Information: MARIVEL HURTADO was seen in my office for initial evaluation on 10/06/24. The following Plan of Care was established for this patient: POC Established Plan: will send info to [facility] to get compression flexitouch pump to assist pt in life long mtg of her lymphedema. Basic pump trial did have fair results but was painful, thus flexitougch is needed to increase compliance with self mtg of lymphedema. Anticipated Interventions Anticipated Interventions: Education re assistive Equipment, Education re Diagnosis, Education re Life-long lymphedema Management, Education re Self-Bandaging Techniques, Education re Skin Care and Precautions, Education re Self Massage Techniques, Education re Correct Donning Tech,Care&Wearing Sched Comp Garments and Home Program Other Interventions: home Vaso pneumatic pump unit to support circulation Last Seen Last Seen: This patient was last seen in our office 10/21/24. Pertinent comments regarding their Occupational therapy will appear below: No further apts have been scheduled. Due to time lapse in service pt is d/c. Pt did get compression pump to assist with her LE edema. At this point I will be discontinuing this patient from occupational therapy. I would be happy to see this patient again in the future if found appropriate by the physician. Thank you! Clarita Pop, OTR/L, CHT
== END 2024-10-21 19:00 | disposition home or self-care (01) ==
LOC: OT 12:00
PROVIDERS: PCP Family Medicine; Referring Provider Obstetrics & Gynecology; Visit Provider Obstetrics & Gynecology
DX: R60.0 Localized edema (principal)
CPT/HCPCS: 97166; 97530